=== PATIENT | male | born 1945 | race Caucasian/White ===

== ENCOUNTER 2018-06-02 12:16 | Emergency (ER) | payer MEDICARE, BC ==
--- OUTSIDE RECORDS SUMMARY | 2018-06-02 12:27 | XMS REPORT | Continuity of Care Document ---
:1945 External Reference #:[id number] Author Name Laurence Kumar Care Team Providers Name Role Phone Temi Blackburn MD Care Team Information Loss Prevention Analyst Unavailable Temi Blackburn MD Primary Care Physician Unavailable Payers Type Date Identification Numbers Payment Provider Subscriber Policy Number: [id number] Medicare Nic Angel PayID: [id number] [address] [place] [address] Policy Number: [id number] [facility] Nic Angel PayID: [id number] [address] [place] [address] Advance Directives Description No Information Available Problems Description No Information Family History Date Family Member(s) Problem(s) Comments Father Coronary Artery Disease (CAD) Father Prostate Cancer Mother Pancreatic Cancer Social History Type Date Description Comments Sex Unknown ETOH Use Rarely consumes alcohol Tobacco Use Start: Unknown End: Unknown Patient is a former smoker Smoking Status Reviewed: 05/14/17 Patient is a former smoker Allergies, Adverse Reactions, Alerts Description No Known Drug Allergies Medications Medication Date Status Form Strength Qnty SIG Indications Ordering Provider Flomax 05/26 Active Capsules 0.4mg 90cap 1 by mouth s every day MD Bere Zantac 75 05/13 Active Tablets 75mg tab 1 by mouth MD Bere twice a day Acidophilus Extra 06/11 Active Capsules 30cap 1 by mouth J15.7 Juan F. Strength s chavez Roman MD times a day Atorvastatin 05/14 Active Tablets 20mg 90tab 1 by mouth Temi Calcium s evening MD Bere Zinc 12/11 Active Tablets 50mg daily Temi MD Bere Tumeric 12/11 Active qd El MD Bere Vitamin D 11/27 Active Capsules [id number] 12cap by mouth Temi (Ergocalciferol) s every week MD Bere Lotrel 11/27 Active Capsules 5-40mg 90cap tab 1 by El s mouth MD Bere every day Metoprolol Active Tablets 50mg 1 by mouth Unknown Tartrate /0000 twice a day Eliquis 00 Active Tablets 5mg twice a Unknown /0000 day Medical Canabis Active twice Unknown Gels /0000 daily Medical Canabis 00 Active take at Unknown Liq /0000 bedtime Cefdinir Active Capsules 300mg 1 by mouth Unknown /0000 twice a day Shingrix 09/03 Hx Suspension 50mcg 2dose 1 dose Rec s intramuscu Bere, - lar then 05/13 repeat in 4 month Levofloxacin 06/11 Hx Tablets 500mg 7tabs 1 by mouth J15.7 Juan F. /2017 every day MD Jessie - 06/28 Zithromax Z-Brennen 05/14 Hx Tablets 250mg 1Pak 1 by mouth every day MD Bere - 06/28 Metamucil Fiber 05/14 Hx Packet 51.7% 90uni 1 packet ts every at MD Bere - bedtime in 05/13 8 oz water /2017 Zostavax 12/11 Hx Suspension 03327Sae/ 1unit one Rec 0.65ML s injection MD Bere - 09/03 Trazodone HCL 11/27 Hx Tablets 50mg 90tab 1 by mouth Cheo s every RingMD - night at 01/22 bedtime Omeprazole 11/[address] 20mg 90tab 1 by mouth Cheo s every day MD Bere - 01/22 Hydrochlorothiazi Hx Tablets 12.5mg tab 1 by Unknown de /0000 mouth - every in 05/13 morning as needed Zantac 150 00 Hx Tablets 150mg 1 by mouth Unknown Maximum Strength /0000 twice a - day 05/13 Tylenol 8 Hour 0000 Hx Tablets ER 650mg 1 by mouth Unknown Arthritis Pain /0000 bid as - directed 05/13 Prednisone 00/00 Hx Tablets 20mg 1 by mouth Unknown /0000 every day - 09/03 Immunizations CPT Code Status Date Vaccine Lot # [id number] Given 12/17/2016 Zostavax Vital Signs Date Vital Result Comment 05/26/2018 11:31am BP Systolic 138 mmHg BP Diastolic 84 mmHg Height 68 inches 5'8" Weight 249.00 lb BMI (Body Mass Index) 37.9 kg/m2 05/13/2018 1:50pm BP Systolic 120 mmHg BP Diastolic 82 mmHg Heart Rate 82 /min Height 68 inches 5'8" Weight 241.50 lb BMI (Body Mass Index) 36.7 kg/m2 O2 % BldC Oximetry 93 % 04/29/2018 10:52am BP Systolic 122 mmHg BP Diastolic 76 mmHg Heart Rate 72 /min Body Temperature 99.6 F Height 68 inches 5'8" Weight 243.00 lb BMI (Body Mass Index) 36.9 kg/m2 O2 % BldC Oximetry 92 % 01/20/2018 10:13am BP Systolic 138 mmHg BP Diastolic 80 mmHg Heart Rate 90 /min Height 68 inches 5'8" Weight 240.00 lb BMI (Body Mass Index) 36.5 kg/m2 O2 % BldC Oximetry 94 % 09/03/2017 11:16am BP Systolic 118 mmHg BP Diastolic 70 mmHg Height 68 inches 5'8" Weight 243.00 lb BMI (Body Mass Index) 36.9 kg/m2 06/28/2017 9:07am BP Systolic 124 mmHg BP Diastolic 76 mmHg Height 68 inches 5'8" Weight 235.00 lb BMI (Body Mass Index) 35.7 kg/m2 06/11/2017 3:21pm BP Systolic 118 mmHg BP Diastolic 66 mmHg Heart Rate 79 /min Body Temperature 97.7 F Respiratory Rate 22 /min Height 68 inches 5'8" 05/14/2017 2:19pm BP Systolic 128 mmHg BP Diastolic 76 mmHg Height 68 inches 5'8" Weight 218.00 lb BMI (Body Mass Index) 33.1 kg/m2 01/22/2017 1:30pm BP Systolic 114 mmHg BP Diastolic 60 mmHg Weight 231.00 lb 12/11/2016 9:13am BP Systolic 110 mmHg BP Diastolic 70 mmHg Height 69 inches 5'9" Weight 234.00 lb BMI (Body Mass Index) 34.6 kg/m2 Results Test Date Facility Test Result H/L Range Note Continuous Oximetry 05/22/2018 [facility] Oximetry 95 % N 93-[address] [place] [address] [phone] Fio2 21 N 21-100 Heart Rate 94 BPM Patient Status AMBULATING Continuous Oximetry 05/22/2018 [facility] Oximetry 95 % N 93-[address] [place] [address] [phone] Fio2 21 N 21-100 Heart Rate 87 BPM Patient Status RESTING Patient Position SITTING UP IN BE <SEE NOTE> 2 CBS W/Automated 05/22/2018 [facility] White Blood 9.2 K/uL N 3.4-10.[address] Count [place], [place] [id number] [phone] Red Blood Count 3.92 M/uL Low 4.20-5.80 Hemoglobin 12.1 gm/dL Low 12.8-17.0 Hematocrit 36.8 % Low 38.0-48.0 Mean Cell Volume 93.9 fl N 80.0-96.0 Mean Corpuscular HGB 30.9 pg N 27.0-33.0 Mean Corpuscular HGB Conc 32.9 g/dL N 31.7-36.0 Platelet Count 143 K/uL Low 155-360 Red Cell Distri Width SD 43.4 fl N 36-51 Red Cell Distri Width %CV 13.0 % N 11.6-15.8 Mean Platelet Volume 9.7 fL N 6.6-10.6 Neut% 82.1 % High 33.0-73.0 Lymph % 6.7 % Low 20.0-42.0 [place] % 8.5 % N 0.0-10.0 Eo% 2.5 % N 0.0-6.6 Bas% 0.2 % N 0.0-1.1 Neut# 7.55 K/uL High 1.8-7.0 Lymph # 0.62 K/uL Low 1.0-4.0 [place] # 0.78 K/uL N 0.0-0.8 Eos # 0.23 K/uL N 0.0-0.5 Baso # 0.02 K/uL N 0.0-0.1 Slide Review 05/22/2018 [facility] Slide Review DIFF ORDERED [address] [place] [address] [phone] Differential-WBC 05/22/2018 [facility] Total Cells 100 #CELLS Confirm [address] [place] [address] [phone] Band% 2 % N 0-8 Neutrophils% 89 % High 33-73 Lymph% 3 % Low 20-42 Monocyte% 4 % N 0-10 Eosinophil% 2 % N 0-5 Platelet Estimate NORMAL Toxic Granulation 0-1+ Comprehensive 05/22/2018 [facility] Glucose 124 mg/ dL High 74-106 Metabolic Panel [address] [place] [address] [phone] BUN 19 mg/dL High 7-18 Creatinine 1.0 mg/dL N 0.6-1.3 Glom Filtration Rate, Estimate >60 mL/min >60 If >60 mL/min >60 3 BUN/Creat 19.0 ratio Sodium 138 mmol/L N 136-145 Potassium 3.9 mmol/L N 3.5-5.1 Chloride 107 mmol/L N 98-107 Carbon Dioxide 24 mmol/L N 21-32 Anion Gap 7 mEq/L Low 8-16 Calcium 7.6 mg/dL Low 8.5-10.1 Total Protein 5.9 g/dL Low 6.4-8.2 Albumin 2.6 g/dL Low 3.4-5.0 Globulin 3.3 g/dL N 1.9-4.3 Alb/Glob 0.8 ratio Bilirubin,Total 1.0 mg/dL N 0.2-1.0 Sgot/Ast 19 U/L N 15-37 SGPT/Alt 34 U/L N 12-78 Alkaline Phosphatase 46 U/L N 45-117 Laboratory test 05/22/2018 [facility] Magnesium 2.0 mg/dL N 1.8-2.[address] [place] [address] [phone] C-Reactive Protein,Quant 143.0 mg/L High <3.0 Lactic Acid 05/21/2018 [facility] Lactic Acid 3.0 mmol/L High 0.4-1.[address] [place] [address] [phone] Lab Reflex >2.0 for Sepsis? N Laboratory test 05/21/2018 [facility] Troponin-I < 0.015 [address] ng/[place] [address] [phone] Laboratory test 05/21/2018 [facility] Magnesium 1.7 mg/dL Low 1.8-2.[address] [place] [address] [phone] Troponin-I < 0.015 ng/mL 6 C-Reactive Protein,Quant 56.0 mg/L High <3.0 Comprehensive 05/21/2018 [facility] Glucose 152 mg/ dL High 74-106 Metabolic Panel [address] [place] [address] [phone] BUN 15 mg/dL N 7-18 Creatinine 1.1 mg/dL N 0.6-1.3 Glom Filtration Rate, Estimate >60 mL/min >60 If >60 mL/min >60 7 BUN/Creat 13.6 ratio Sodium 136 mmol/L N 136-145 Potassium 4.3 mmol/L N 3.5-5.1 Chloride 104 mmol/L N 98-107 Carbon Dioxide 24 mmol/L N 21-32 Anion Gap 8 mEq/L N 8-16 Calcium 7.6 mg/dL Low 8.5-10.1 Total Protein 6.5 g/dL N 6.4-8.2 Albumin 3.2 g/dL Low 3.4-5.0 Globulin 3.3 g/dL N 1.9-4.3 Alb/Glob 1.0 ratio Bilirubin,Total 1.3 mg/dL High 0.2-1.0 Sgot/Ast 27 U/L N 15-37 SGPT/Alt 45 U/L N 12-78 Alkaline Phosphatase 54 U/L N 45-117 CBS W/Automated 05/21/2018 [facility] White Blood 14.2 K/uL High 3.4-10.[address] [place] [address] [phone] Red Blood Count 4.16 M/uL Low 4.20-5.80 Hemoglobin 12.9 gm/dL N 12.8-17.0 Hematocrit 38.6 % 38.0-48.0 Mean Cell Volume 92.8 fl N 80.0-96.0 Mean Corpuscular HGB 31.0 pg N 27.0-33.0 Mean Corpuscular HGB Conc 33.4 g/dL N 31.7-36.0 Platelet Count 159 K/uL N 155-360 Red Cell Distri Width SD 43.5 fl N 36-51 Red Cell Distri Width %CV 13.2 % N 11.6-15.8 Mean Platelet Volume 9.6 fL N 6.6-10.6 Neut% 89.0 % High 33.0-73.0 Lymph % 3.3 % Low 20.0-42.0 [place] % 7.6 % N 0.0-10.0 Eo% 0.0 % N 0.0-6.6 Bas% 0.1 % N 0.0-1.1 Neut# 12.68 K/uL High 1.8-7.0 Lymph # 0.47 K/uL Low 1.0-4.0 [place] # 1.08 K/uL High 0.0-0.8 Eos # 0.00 K/uL N 0.0-0.5 Baso # 0.01 K/uL N 0.0-0.1 Lactic Acid 05/21/2018 [facility] Lactic Acid 2.5 mmol/L High 0.4-1.[address] [place], [place] [address] [phone] Lab Reflex >2.0 for Sepsis? N Lactic Acid 05/21/2018 [facility] Lactic Acid 2.1 mmol/L High 0.4-1.[address] [place], [place] [id number] [phone] Lab Reflex >2.0 for Sepsis? N Lactic Acid 05/21/2018 [facility] Lactic Acid 1.7 mmol/L N 0.4-1.[address] [place] [address] [phone] Lab Reflex >2.0 for Sepsis? N [id number]-[id number] 05/20/2018 [facility] Nitrofurantoin [address] [place] [address] [phone] Trimethoprim/Sulfamethoxazole <=20 S Cefazolin <=4 R Ciprofloxacin <=0.25 S Piperacillin/Tazobactam <=4 S Ceftazidime <=1 S Ceftriaxone <=1 S Cefepime <=1 S Levofloxacin <=0.12 S Imipenem <=0.25 S Gentamicin <=1 S Tobramycin <=1 S Urine 05/20/2018 [facility] Urine ENTEROBACTER YAMILETH Abnormal [address] Culture <SEE NOTE> [place] [id number] [phone] Quantity > 100,000 CFU/mL 11 Urinalysis With 05/20/2018 [facility] Urine Color YELLOW Yellow [address] [place], [place] [address] [phone] Urine Clarity CLEAR Clear Urine Glucose - Dipstick NEGATIVE mg/dL Negative Urine Bilirubin - Dipstick NEGATIVE Negative Urine Ketone TRACE mg/dL High Negative Urine Specific [place] >=1.030 N 1.010-1.030 Urine Blood TRACE Negative Urine PH 6.0 Low 6.5-7.5 Urine Protein - Dipstick TRACE mg/dL Negative Urine Urobilinogen - Dipstick 0.2 E.U./dL N 0.2-1.0 Urine Nitrite - Dipstick NEGATIVE Negative Urine Leuk Esterase TRACE Abnormal Negative Urine RBC 2-5 rbc/hpf 0-2 Urine WBC 5-10 wbc/hpf 0-7 Urine Epithelial Cells FEW /lpf None Seen Urine Calcium Oxalate Crystals FEW None Seen Urine Bacteria FEW None Seen Source: URINE, CLEAN CAT <SEE NOTE> 13 Laboratory test 05/20/2018 [facility] D-Dimer, 0.34 ug/mL [address] Quantitative [place], [place] [id number] [phone] Lactic Acid 05/20/2018 [facility] Lactic Acid 2.7 mmol/L High 0.4-[address] [place], [place] [id number] [phone] Lab Reflex >2.0 for Sepsis? Y Blood Culture 05/20/2018 [facility] Blood Culture NO GROWTH: 15, [address] Aerobic FINAL <[place] [address] NOTE> [phone] Blood Culture Anaerobic NO GROWTH: FINAL <SEE NOTE> 17 Slide Review 05/20/2018 [facility] Slide Review (SEE NOTE) 18, [address] [place], [place] [id number] [phone] CBS 05/20/2018 [facility] White Blood 11.0 K/uL High 3.4-10 W/Automated [address] Count .5 [place] [address] [phone] Red Blood Count 4.73 M/uL N 4.20-5.80 Hemoglobin 14.4 gm/dL N 12.8-17.0 Hematocrit 43.4 % N 38.0-48.0 Mean Cell Volume 91.8 fl N 80.0-96.0 Mean Corpuscular HGB 30.4 pg N 27.0-33.0 Mean Corpuscular HGB Conc 33.2 g/dL N 31.7-36.0 Platelet Count 212 K/uL N 155-360 Red Cell Distri Width SD 43.2 fl N 36-51 Red Cell Distri Width %CV 13.2 % N 11.6-15.8 Mean Platelet Volume 9.7 fL N 6.6-10.6 Neut% 77.5 % High 33.0-73.0 Lymph % 11.0 % Low 20.0-42.0 [place] % 10.8 % High 0.0-10.0 Eo% 0.5 % N 0.0-6.6 Bas% 0.2 % N 0.0-1.1 Neut# 8.55 K/uL High 1.8-7.0 Lymph # 1.21 K/uL N 1.0-4.0 [place] # 1.19 K/uL High 0.0-0.8 Eos # 0.06 K/uL N 0.0-0.5 Baso # 0.02 K/uL N 0.0-0.1 Laboratory test 05/20/2018 [facility] Magnesium 1.7 mg/dL Low 1.8-2.[address] [place] [address] [phone] NT-proBNP 86.0 pg/mL <125 Troponin-I < 0.015 ng/mL 20 Comprehensive 05/20/2018 [facility] Glucose 113 mg/ dL High 74-106 Metabolic Panel [address] [place] [address] [phone] BUN 22 mg/dL High 7-18 Creatinine 1.1 mg/dL N 0.6-1.3 Glom Filtration Rate, Estimate >60 mL/min >60 If >60 mL/min >60 21 BUN/Creat 20.0 ratio Sodium 138 mmol/L N 136-145 Potassium 4.1 mmol/L N 3.5-5.1 Chloride 103 mmol/L N 98-107 Carbon Dioxide 23 mmol/L N 21-32 Anion Gap 12 mEq/L N 8-16 Calcium 8.8 mg/dL N 8.5-10.1 Total Protein 7.7 g/dL N 6.4-8.2 Albumin 3.9 g/dL N 3.4-5.0 Globulin 3.8 g/dL N 1.9-4.3 Alb/Glob 1.0 ratio Bilirubin,Total 0.9 mg/dL N 0.2-1.0 Sgot/Ast 36 U/L N 15-37 SGPT/Alt 64 U/L N 12-78 Alkaline Phosphatase 66 U/L N 45-117 Laboratory 05/20/2018 [facility] Occult NEGATIVE Negative 22 test finding [address] Blood,Stool [place], [place] [id number] [phone] Blood Culture 05/20/2018 [facility] Blood Culture NO GROWTH: 23, [address] Aerobic FINAL <SEE 24 [place] [address] NOTE> [phone] Blood Culture Anaerobic NO GROWTH: FINAL <SEE NOTE> 25 Aot Request 05/20/2018 [facility] Aot Request Test(s ) added 26, [address] [place] [address] [phone] Tests to be added: crp magnesium Aot Request 05/20/2018 [facility] Aot Request Test(s ) added [address] [place] [address] [phone] Tests to be added: bnp Laboratory test 05/20/2018 [facility] C-Reactive 7.2 mg/L High <3.[address] Protein,[place] [address] [phone] Laboratory test 05/20/2018 [facility] Lactic Acid 4.9 High 0.4-1.9 [address] mmol/[place] [address] [phone] Laboratory test 04/29/2018 [facility] TSH 2.35 0.40-4.[address] mIU/L 0 [place], [place] [address] [phone] T4,Free 1.0 ng/dL 0.8-1.8 PSA,Total 0.5 NG/ML < Or=4.0 31 Vitamin D,25-Hydroxy,Total,Immunoassay 36 NG/ML 30-100 32 CBS W/Automated Diff 04/29/2018 [facility] WBC 8.1 thous/L 3.8-10.[address] [place] [address] [phone] RBC 4.79 mill/L 4.20-5.80 Hemoglobin 14.8 g/dL 13.2-17.1 Hematocrit 45.3 % 38.5-50.0 MCV 94.7 FL 80.0-100.0 MCH 30.9 pg 27.0-33.0 MCHC 32.6 g/dL 32.0-36.0 RDW 13.1 % 11.0-15.0 Platelet Count 168 thous/L 140-400 MPV 8.2 FL 7.5-12.5 Neutrophils,Absolute 6010 cells/L [phone] Bands,Absolute PENDING Metamyelocytes,Absolute PENDING Myelocytes,Absolute PENDING Promyelocytes,Absolute PENDING Lymphocytes,Absolute 800 cells/L Low 850-3900 Monocytes,Absolute 1250 cells/L High 200-950 Eosinophils,Absolute 30 cells/L 15-500 Basophils,Absolute 30 cells/L 0-200 Blast Cells,Absolute PENDING Nucleated RBC,Absolute PENDING Total Neutrophils,% 74 % 40-75 Bands,% PENDING Metamyelocytes,% PENDING Myelocytes,% PENDING Promyelocytes,% PENDING Total Lymphocytes,% 10 % Low 12-47 Reactive Lymphocytes PENDING Monocytes,% 15 % High 4-12 Eosinophils,% 0 % 0-4 Basophils,% 0 % 0-1 33 Blasts,% PENDING Nucleated RBC PENDING Comment PENDING LDL Cholesterol Profile 04/29/2018 [facility] Cholesterol 124 mg/dL <[address] [place] [address] [phone] HDL Cholesterol 40 mg/dL Low >40 Cholesterol/HDL Ratio 3.1 CALC <5.0 LDL Chol,Calculated 67 mg/dL 0-100 34 Triglycerides 86 mg/dL <150 Non-HDL Cholesterol 84 mg/dL <130 35 Laboratory test 04/29/2018 [facility] Creatine 75 U/L 44-[address] Kinase,Total [place], [place] [address] [phone] Comp Metabolic 04/29/2018 [facility] Sodium 136 135-[address] mmol/L [place], [place] [address] [phone] Potassium 4.1 mmol/L 3.5-5.3 Chloride 102 mmol/L 98-110 Carbon Dioxide 23 mmol/L 20-32 36 Calcium 9.1 mg/dL 8.6-10.3 Alkaline Phosphatase 57 U/L 40-115 Ast 16 U/L 10-35 Alt 22 U/L 9-46 Bilirubin,Total 0.9 mg/dL 0.2-1.2 Glucose 140 mg/dL High 65-99 37 Urea Nitrogen (BUN) 18 mg/dL 7-25 Creatinine 0.97 mg/dL 0.70-1.18 38 BUN/Creatinine Ratio 18.8 6-22 Protein,Total 6.8 g/dL 6.1-8.1 Albumin 4.1 g/dL 3.6-5.1 Globulin,Calculated 2.7 g/dL 1.9-3.7 A/G Ratio 1.6 1.0-2.5 Egfr Non-Afr. Israeli 79 ML/MIN/1.73M2 > Or=60 Egfr 91 ML/MIN/1.73M2 > Or=60 CBC W/ Diff & 01/07/2018 [facility] White Blood 5.9 K /uL N 3.4-10.5 [address] [place] [address] [phone] Red Blood Count 4.71 M/uL N 4.20-5.80 Hemoglobin 14.7 gm/dL N 12.8-17.0 Hematocrit 44.1 % N 38.0-48.0 Mean Cell Volume 93.6 fl N 80.0-96.0 Mean Corpuscular HGB 31.2 pg N 27.0-33.0 Mean Corpuscular HGB Conc 33.3 g/dL N 31.7-36.0 Platelet Count 207 K/uL N 155-360 Red Cell Distri Width SD 43.2 fl N 36-51 Red Cell Distri Width %CV 12.9 % N 11.6-15.8 Mean Platelet Volume 9.6 fL N 6.6-10.6 Neut% 66.0 % N 33.0-73.0 Lymph % 15.2 % Low 20.0-42.0 [place] % 15.0 % High 0.0-10.0 Eo% 3.6 % N 0.0-6.6 Bas% 0.2 % N 0.0-1.1 Neut# 3.87 K/uL N 1.8-7.0 Lymph # 0.89 K/uL Low 1.0-4.0 [place] # 0.88 K/uL High 0.0-0.8 Eos # 0.21 K/uL N 0.0-0.5 Baso # 0.01 K/uL N 0.0-0.1 Comprehensive 01/07/2018 [facility] Glucose 117 mg/ dL High 74-106 Metabolic Panel [address] [place], [place] [address] [phone] BUN 21 mg/dL High 7-18 Creatinine 1.0 mg/dL N 0.6-1.3 Glom Filtration Rate, Estimate >60 mL/min >60 If >60 mL/min >60 40 BUN/Creat 21.0 ratio Sodium 142 mmol/L N 136-145 Potassium 4.1 mmol/L N 3.5-5.1 Chloride 106 mmol/L N 98-107 Carbon Dioxide 27 mmol/L N 21-32 Anion Gap 9 mEq/L N 8-16 Calcium 9.0 mg/dL N 8.5-10.1 Total Protein 7.6 g/dL N 6.4-8.2 Albumin 4.0 g/dL N 3.4-5.0 Globulin 3.6 g/dL N 1.9-4.3 Alb/Glob 1.1 ratio Bilirubin,Total 1.0 mg/dL N 0.2-1.0 Sgot/Ast 23 U/L N 15-37 SGPT/Alt 37 U/L N 12-78 Alkaline Phosphatase 59 U/L N 45-117 LDL Cholesterol 01/07/2018 [facility] Cholesterol 125 mg/dL <200 [address] [place] [address] [phone] Triglycerides 132 mg/dL <150 42 HDL Cholesterol 43 mg/dL >40 43 LDL-Cholesterol 56 mg/dL < 100 44 Laboratory test finding 01/07/2018 [facility] CK 159 U/L N 39-[address] [place] [address] [phone] Prostate Specific Antigen 3.78 ng/mL < 4.0 45 Thyroid Stim Hormone 1.60 uIU/mL N 0.30-4.20 Free T4 1.04 ng/dL N 0.76-1.46 Laboratory test 01/07/2018 [facility] Vitamin 47.8 30.0-100.0 [address] D,25-Hydroxy ng/[place] [address] [phone] CBC W/ Diff & 08/26/2017 [facility] WBC 6.2 3.8-10.8 [address] thous/[place] [address] [phone] RBC 4.84 mill/L 4.20-5.80 Hemoglobin 14.9 g/dL 13.2-17.1 Hematocrit 45.5 % 38.5-50.0 MCV 94.1 FL 80.0-100.0 MCH 30.7 pg 27.0-33.0 MCHC 32.6 g/dL 32.0-36.0 RDW 13.6 % 11.0-15.0 Platelet Count 204 thous/L 140-400 Platelet Sufficiency PENDING MPV 8.1 FL 7.5-12.5 Neutrophils,Absolute 3890 cells/L [phone] Bands,Absolute PENDING Metamyelocytes,Absolute PENDING Myelocytes,Absolute PENDING Promyelocytes,Absolute PENDING Lymphocytes,Absolute 1400 cells/L 850-3900 Monocytes,Absolute 700 cells/L 200-950 Eosinophils,Absolute 210 cells/L 15-500 Basophils,Absolute 50 cells/L 0-200 Blast Cells,Absolute PENDING Nucleated RBC,Absolute PENDING Total Neutrophils,% 62 % 40-75 Bands,% PENDING Metamyelocytes,% PENDING Myelocytes,% PENDING Promyelocytes,% PENDING Total Lymphocytes,% 22 % 12-47 Monocytes,% 11 % 4-12 Eosinophils,% 3 % 0-4 Basophils,% 1 % 0-1 48 Blasts,% PENDING Nucleated RBC PENDING RBC Morphology PENDING Anisocytosis PENDING Poikilocytosis PENDING Microcytosis PENDING Macrocytosis PENDING Polychromasia PENDING Hypochromasia PENDING Target Cells PENDING Basophilic Stippling PENDING Comment PENDING Comp Metabolic Panel 08/26/2017 [facility] Sodium 137 mmol/L 135-[address] [place] [address] [phone] Potassium 4.5 mmol/L 3.5-5.3 Chloride 104 mmol/L 98-110 Carbon Dioxide 23 mmol/L 20-31 Calcium 9.3 mg/dL 8.6-10.3 Alkaline Phosphatase 54 U/L 40-115 Ast 27 U/L 10-35 Alt 37 U/L 9-46 Bilirubin,Total 0.7 mg/dL 0.2-1.2 Glucose 119 mg/dL High 65-99 49 Urea Nitrogen (BUN) 22 mg/dL 7-25 Creatinine 1.13 mg/dL 0.70-1.18 50 BUN/Creatinine Ratio 19.4 6-22 Protein,Total 6.9 g/dL 6.1-8.1 Albumin 4.5 g/dL 3.6-5.1 Globulin,Calculated 2.4 g/dL 1.9-3.7 A/G Ratio 1.9 1.0-2.5 Egfr Non-Afr. Israeli 65 ML/MIN/1.73M2 > Or=60 Egfr 76 ML/MIN/1.73M2 > Or=60 Laboratory test 08/26/2017 [facility] Creatine 76 U/L 44-[address] Kinase,[place] [address] [phone] Hepatic Function 08/26/2017 [facility] Alkaline 54 U/L 40-[address] [place] [address] [phone] Ast 27 U/L 10-35 Alt 37 U/L 9-46 Bilirubin,Total 0.7 mg/dL 0.2-1.2 Bilirubin,Direct 0.2 mg/dL < Or=0.2 Protein,Total 6.9 g/dL 6.1-8.1 Albumin 4.5 g/dL 3.6-5.1 Globulin,Calculated 2.4 g/dL 1.9-3.7 A/G Ratio 1.9 1.0-2.5 Lipid Panel 08/26/2017 [facility] Cholesterol 127 mg/dL <[address] [place] [address] [phone] HDL Cholesterol 52 mg/dL >40 Cholesterol/HDL Ratio 2.4 CALC <5.0 LDL Chol,Calculated 61 mg/dL 0-100 51 Triglycerides 61 mg/dL <150 Non-HDL Cholesterol 75 mg/dL <130 52 Comp Metabolic Panel 04/29/2017 [facility] Sodium 139 mmol/L 135-[address] [place] [address] [phone] Potassium 4.7 mmol/L 3.5-5.3 Chloride 105 mmol/L 98-110 Carbon Dioxide 27 mmol/L 20-31 Calcium 9.7 mg/dL 8.6-10.3 Alkaline Phosphatase 56 U/L 40-115 Ast 16 U/L 10-35 Alt 20 U/L 9-46 Bilirubin,Total 0.7 mg/dL 0.2-1.2 Glucose 126 mg/dL High 65-99 53 Urea Nitrogen (BUN) 17 mg/dL 7-25 Creatinine 0.92 mg/dL 0.70-1.25 54 BUN/Creatinine Ratio 18.6 6-22 Protein,Total 6.6 g/dL 6.1-8.1 Albumin 4.4 g/dL 3.6-5.1 Globulin,Calculated 2.2 g/dL 1.9-3.7 A/G Ratio 2.1 1.0-2.5 55 Egfr Non-Afr. Israeli 85 ML/MIN/1.73M2 > Or=60 Egfr 98 ML/MIN/1.73M2 > Or=60 Hepatic Function 04/29/2017 [facility] Alkaline Phosphatase 56 U/L 40- [address] [place] [address] [phone] Ast 16 U/L 10-35 Alt 20 U/L 9-46 Bilirubin,Total 0.7 mg/dL 0.2-1.2 Bilirubin,Direct 0.2 mg/dL < Or=0.2 Protein,Total 6.6 g/dL 6.1-8.1 Albumin 4.4 g/dL 3.6-5.1 Globulin,Calculated 2.2 g/dL 1.9-3.7 A/G Ratio 2.1 1.0-2.5 56 Lipid Panel 04/29/2017 [facility] Cholesterol 132 mg/dL <[address] [place] [address] [phone] HDL Cholesterol 37 mg/dL Low >40 Cholesterol/HDL Ratio 3.6 CALC <5.0 LDL Chol,Calculated 76 mg/dL 0-100 57 Triglycerides 100 mg/dL <150 Non-HDL Cholesterol 95 mg/dL <130 58 Laboratory test finding 04/29/2017 [facility] TSH 1.20 mIU/L 0.40-4.50 6 [facility] [place] [address] [phone] T4,Free 1.1 ng/dL 0.8-1.8 PSA,Total 0.9 NG/ML < Or=4.0 59 Vitamin D,25-Hydroxy,Total,Immunoassay 47 NG/ML 30-100 60 CBC W/ Diff & PLT 04/29/2017 [facility] WBC 6.4 thous/L 3.8-10.8 6 [facility] [place] [address] [phone] RBC 4.83 mill/L 4.20-5.80 Hemoglobin 15.1 g/dL 13.2-17.1 Hematocrit 44.5 % 38.5-50.0 MCV 92.1 FL 80.0-100.0 MCH 31.2 pg 27.0-33.0 MCHC 33.9 g/dL 32.0-36.0 RDW 12.9 % 11.0-15.0 Platelet Count 207 thous/L 140-400 Platelet Sufficiency PENDING MPV 8.3 FL 7.5-12.5 Neutrophils,Absolute 4370 cells/L 7575-1944 Bands,Absolute PENDING Metamyelocytes,Absolute PENDING Myelocytes,Absolute PENDING Promyelocytes,Absolute PENDING Lymphocytes,Absolute 1150 cells/L [phone] Monocytes,Absolute 640 cells/L 200-950 Eosinophils,Absolute 190 cells/L 15-500 Basophils,Absolute 20 cells/L 0-200 Blast Cells,Absolute PENDING Nucleated RBC,Absolute PENDING Total Neutrophils,% 69 % 40-75 Bands,% PENDING Metamyelocytes,% PENDING Myelocytes,% PENDING Promyelocytes,% PENDING Total Lymphocytes,% 18 % 12-47 Monocytes,% 10 % 4-12 Eosinophils,% 3 % 0-4 Basophils,% 0 % 0-1 61 Blasts,% PENDING Nucleated RBC PENDING RBC Morphology PENDING Anisocytosis PENDING Poikilocytosis PENDING Microcytosis PENDING Macrocytosis PENDING Polychromasia PENDING Hypochromasia PENDING Target Cells PENDING Basophilic Stippling PENDING Comment PENDING General Health 01/09/2017 [facility] Thyroid Stim 0.94 uIU/mL N 0.30-4.20 [address] [place] [address] [phone] Free T4 0.87 ng/dL N 0.76-1.46 CMP W/O Egfr 01/09/2017 [facility] Glucose 107 mg/dL High 74-[address] [place] [address] [phone] BUN 25 mg/dL High 7-18 Creatinine 0.9 mg/dL N 0.6-1.3 Glom Filtration Rate, Estimate >60 mL/min >60 If >60 mL/min >60 63 BUN/Creat 27.7 ratio Sodium 139 mmol/L N 136-145 Potassium 4.2 mmol/L N 3.5-5.1 Chloride 108 mmol/L High 98-107 Carbon Dioxide 21 mmol/L N 21-32 Anion Gap 10 mEq/L N 8-16 Calcium 8.8 mg/dL N 8.5-10.1 Total Protein 7.4 g/dL N 6.4-8.2 Albumin 3.9 g/dL N 3.4-5.0 Globulin 3.5 g/dL N 1.9-4.3 Alb/Glob 1.1 ratio Bilirubin,Total 0.4 mg/dL N 0.2-1.0 Sgot/Ast 16 U/L N 15-37 SGPT/Alt 36 U/L N 12-78 Alkaline Phosphatase 64 U/L N 45-117 CBC W/ Diff & 01/09/2017 [facility] White Blood 8.4 K /uL N 3.4-10.[address] Count [place], [place] [id number] [phone] Red Blood Count 4.54 M/uL N 4.20-5.80 Hemoglobin 14.6 gm/dL N 12.8-17.0 Hematocrit 41.9 % N 38.0-48.0 Mean Cell Volume 92.3 fl N 80.0-96.0 Mean Corpuscular HGB 32.2 pg N 27.0-33.0 Mean Corpuscular HGB Conc 34.8 g/dL N 31.7-36.0 Platelet Count 197 K/uL N 150-400 Red Cell Distri Width SD 40.9 fl N 36-51 Red Cell Distri Width %CV 12.5 % N 11.6-15.8 Mean Platelet Volume 10.2 fL N 6.6-10.6 Neut% 73.1 % High 33.0-73.0 Lymph % 12.3 % Low 20.0-42.0 [place] % 11.2 % High 0.0-10.0 Eo% 3.2 % N 0.0-6.6 Bas% 0.2 % N 0.0-1.1 Neut# 6.11 K/uL N 1.8-7.0 Lymph # 1.03 K/uL N 1.0-4.0 [place] # 0.94 K/uL High 0.0-0.8 Eos # 0.27 K/uL N 0.0-0.5 Baso # 0.02 K/uL N 0.0-0.1 Lipid Panel 01/09/2017 [facility] Cholesterol 181 mg/ dL <[address] [place] [address] [phone] Triglycerides 159 mg/dL High <150 65 HDL Cholesterol 42 mg/dL >40 66 LDL-Cholesterol 107 mg/dL < 100 67 Laboratory test 01/09/2017 [facility] Prostate 1.56 ng/mL < 4.0 [address] [place] [address] Antigen [phone] Vitamin D,25-Hydroxy 45.7 ng/mL 30.0-100.0 69 Bilirubin,Direct 0.1 mg/dL N 0.0-0.2 1 SEPSIS, UTI 2 SITTING UP IN BED 3 Note: Persistent reduction for 3 months or more in an eGFR <60 mL/min/1.73 m2 defines CKD. Patients with eGFR values >/=60 mL/min/1.73 m2 may also have CKD if evidence of persistent proteinuria is present. The original MDRD equation for estimated GFR is not valid for patients less than 18 years of age. Additional information may be found at www.[email or web address]. 4 SEPSIS UTI 5 0.0 - 0.045 ng/mL: Normal 0.046 - 0.5 ng/mL: Suggestive 0.6 - 1.5 ng/mL: Consistent 6 0.0 - 0.045 ng/mL: Normal 0.046 - 0.5 ng/mL: Suggestive 0.6 - 1.5 ng/mL: Consistent 7 Note: Persistent reduction for 3 months or more in an eGFR <60 mL/min/1.73 m2 defines CKD. Patients with eGFR values >/=60 mL/min/1.73 m2 may also have CKD if evidence of persistent proteinuria is present. The original MDRD equation for estimated GFR is not valid for patients less than 18 years of age. Additional information may be found at www.[email or web address]. 8 SEPSIS, UTI 9 Specimen Hemolyzed, interpret with caution 10 ENTEROBACTER CLOACAE COMPLEX 11 > 100,000 CFU/mL 12 SOB, PAINFUL URINATION, URINARY INCONTINENCE 13 URINE, CLEAN CATCH 14 <=0.49 ug/mL - Low likelihood of DIC, DVT or Pulmonary Embolism >0.49 ug/mL - Additional testing should be done to rule out DIC, DVT, or Pulmonary embolism as clinically indicated. ([facility] has established a 97.89% negative predictive value for thrombotic disease when a cutoff value of 0.5 ug/mL is used.) 15 SEPSIS, UTI 16 NO GROWTH: FINAL REPORT 17 NO GROWTH: FINAL REPORT 18 SOB, PAINFUL URINATION, URINARY INCONTINENCE 19 Instrument flagged sample for slide review. Less than 10% Bands seen, no other immature WBC's seen. RBC morphology essentially normal. Platelet estimate=NORMAL 20 0.0 - 0.045 ng/mL: Normal 0.046 - 0.5 ng/mL: Suggestive 0.6 - 1.5 ng/mL: Consistent 21 Note: Persistent reduction for 3 months or more in an eGFR <60 mL/min/1.73 m2 defines CKD. Patients with eGFR values >/=60 mL/min/1.73 m2 may also have CKD if evidence of persistent proteinuria is present. The original MDRD equation for estimated GFR is not valid for patients less than 18 years of age. Additional information may be found at www.[email or web address]. 22 Method: Radha Peña Hemoccult Card 23 SEPSIS, UTI 24 NO GROWTH: FINAL REPORT 25 NO GROWTH: FINAL REPORT 26 SEPSIS UTI 27 Tests: crp magnesium Instructions: 28 Tests: bnp Instructions: 29 CALLED RICARDO [facility] AT [id number]/20/18 by LAB.[email or web address] 30 FASTING 31 The total PSA value from this assay system is standardized against the WHO standard. The test result will be approximately 20% lower when compared to the equimolar-standardized total PSA ([facility]ha [place]). Comparison of serial PSA results should be interpreted with this fact in mind. This test was performed using the Siemens chemiluminescent method. Values obtained from different assay methods be used interchangeably. PSA levels, regardless of value, should not be interpreted as absolute evidence of the presence or absence of disease. 32 Vitamin D Status 25-OH Vitamin D: Deficiency: <20 ng/mL Insufficiency: 20-29 ng/mL Optimal: > or=30 ng/mL For 25-OH Vitamin D testing on patients on D2-supplementation and patients for whom quantitation of D2 and D3 fractions is required, the QuestAssureD 25-OH Vit D, (D2,D3),LC/MS/MS is recommended: Order code 95305 (patients >2 yrs). 33 Relative blood cell counts (%) should be compared with absolute cell counts (cells/mcL). Relative counts may not be clinically meaningful if the absolute count of one or more cell type is decreased. Reference ranges for relative cell counts derived from: A Manual of Laboratory and Diagnostics Tests, 9th Ed, Zhen Vivek & Craig, 2015. Pediatric Reference Intervals, 7th Ed, [employer], 2011. 34 LDL-C is now calculated using the Zachary-Marci calculation, which is a validated novel method providing better accuracy than the Friedewald equation in the estimation of LDL-C. Zachary PATEL et al.JILL.2013;310(19):0260-0543 Desirable range <100 mg/dL for primary prevention; <70 mg/dL for patients with CHD or diabetic patients with >or=2 CHD risk factors. For additional information, please refer to http://education.SimilarWeb/faq/YMY235(This link is being provided for informational/educational purposes only.) 35 For patients with diabetes plus 1 major ASCVD risk factor, treating to a non-HDL-C goal of <100 mg/dL (LDL-C of <70 mg/ dL) is considered a therapeutic option. 36 Reference range for high altitude clients: 18-30 mmol/L 37 GLUCOSE REFERENCE RANGE BASED ON FASTING SPECIMEN. 38 The upper reference limit for Creatinine is approximately 13% higher for people identified as -Israeli. 39 I11.9,E55.9,E78.2 AIC IMPAIRED FASTING 40 Note: Persistent reduction for 3 months or more in an eGFR <60 mL/min/1.73 m2 defines CKD. Patients with eGFR values >/=60 mL/min/1.73 m2 may also have CKD if evidence of persistent proteinuria is present. The original MDRD equation for estimated GFR is not valid for patients less than 18 years of age. Additional information may be found at www.kdoqi.org. 41 Reference Guidelines*: Desirable: ........... < 200 mg/dL Borderline High: ..... 200-239 mg/dL High: ................ >=240 mg/dL * The National Cholesterol Education Program (NCEP) 42 Reference Guidelines*: Normal: ............. < 150 mg/dL Borderline High: .... 150-199 mg/dL High: ............... 200-499 mg/dL Very High: .......... > 500 mg/dL * Source: National Cholesterol Education Program (NCEP) 43 Reference Guidelines*: Low HDL: ..... < 40 mg/dL Normal: ..... 40-60 mg/dL Desirable: ... > 60 mg/dL *The National Cholesterol Education Program(NCEP) 44 Reference Guidelines*: Optimal:........... <100 mg/dL Near Optimal....... 100-129 mg/dL Borderline High.... 130-159 mg/dL High............... 160-189 mg/dL Very High.......... >=190 mg/dL * Source: National Cholesterol Education Program (NCEP) 45 THIS ASSAY IS NOT INTENDED A CANCER SCREENING TEST The concentration of PSA in a given specimen, determined with assays from different manufacturers, can vary due to differences in assay methods and reagent specificity. Values obtained from different assay methods cannot be used interchangeably. Method: Siemens [employer] [place] Chemiluminescent immunoassay. 46 Vitamin D deficiency has been defined by the [place] [employer] and an Endocrine Society practice guideline as a level of serum 25-OH vitamin D less than 20 ng/mL (1,2). The Endocrine Society went on to further define vitamin D insufficiency as a level between 21 and 29 ng/mL (2). 1. IOM ([place] of [employer]). 2010. Dietary reference intakes for calcium and D. [place]: The National Academies Press. 2. Shabbir MF, Opal LESLIE, Linus PYLE, et al. Evaluation, treatment, and prevention of vitamin D deficiency: an Endocrine Society clinical practice guideline. JCEM. 2010; 96(7):1911-30. Performed at: RN - [facility] [address] [id number] Software Project Lead: Taryn Sánchez MD, Phone: [phone] FASTING 48 Relative blood cell counts (%) should be compared with absolute cell counts (cells/mcL). Relative counts may not be clinically meaningful if the absolute count of one or more cell type is decreased. Reference ranges for relative cell counts derived from: A Manual of Laboratory and Diagnostics Tests, 9th Ed, Zhen Vivek & Craig, 2015. Pediatric Reference Intervals, 7th Ed, [employer], 2011. 49 GLUCOSE REFERENCE RANGE BASED ON FASTING SPECIMEN. 50 The upper reference limit for Creatinine is approximately 13% higher for people identified as -Israeli. 51 LDL-C is now calculated using the Zachary-Marci calculation, which is a validated novel method providing better accuracy than the Friedewald equation in the estimation of LDL-C. Zachary PATEL et al.JILL.2013;310(19):0928-6262 (http://education.SimilarWeb/faq/ILZ485) Desirable range <100 mg/dL for patients with CHD or Diabetes and <70 mg/dL for Diabetic patients with known heart disease 52 For patients with diabetes plus 1 major ASCVD risk factor, treating to a non-HDL-C goal of <100 mg/dL (LDL-C of <70 mg/ dL) is considered a therapeutic option. 53 GLUCOSE REFERENCE RANGE BASED ON FASTING SPECIMEN. 54 The upper reference limit for Creatinine is approximately 13% higher for people identified as -Israeli. 55 WE RECEIVED YOUR HANDWRITTEN TEST ORDER FOR A CHEMISTRY PANEL CONTAINING 14 OR MORE ANALYTES. WE PERFORMED THE AMA DEFINED COMPREHENSIVE METABOLIC PANEL. IF THIS IS NOT WHAT YOU INTENDED TO ORDER, PLEASE CONTACT YOUR LOCAL [employer] P[employer] IMMEDIATELY AT SO THAT WE CAN ADJUST OUR BILLING APPROPRIATELY. YOU MAY ALSO INQUIRE ABOUT ALTERNATIVE OR ADDITIONAL TESTING. 56 WE RECEIVED YOUR HANDWRITTEN TEST ORDER FOR A CHEMISTRY PANEL CONTAINING 14 OR MORE ANALYTES. WE PERFORMED THE AMA DEFINED COMPREHENSIVE METABOLIC PANEL. IF THIS IS NOT WHAT YOU INTENDED TO ORDER, PLEASE CONTACT YOUR LOCAL [employer] [facility] IMMEDIATELY AT SO THAT WE CAN ADJUST OUR BILLING APPROPRIATELY. YOU MAY ALSO INQUIRE ABOUT ALTERNATIVE OR ADDITIONAL TESTING. 57 LDL-C is now calculated using the Zachary-Covarrubias calculation, which is a validated novel method providing better accuracy than the Friedewald equation in the estimation of LDL-C. Zachary PATEL et al.JILL.2013;310(19):3981-7702 (http://education.[address]..Viewex/faq/SHE212) Desirable range <100 mg/dL for patients with CHD or Diabetes and <70 mg/dL for Diabetic patients with known heart disease 58 For patients with diabetes plus 1 major ASCVD risk factor, treating to a non-HDL-C goal of <100 mg/dL (LDL-C of <70 mg/ dL) is considered a therapeutic option. 59 The total PSA value from this assay system is standardized against the WHO standard. The test result will be approximately 20% lower when compared to the equimolar-standardized total PSA ([place]ha [place]). Comparison of serial PSA results should be interpreted with this fact in mind. This test was performed using the Siemens chemiluminescent method. Values obtained from different assay methods be used interchangeably. PSA levels, regardless of value, should not be interpreted as absolute evidence of the presence or absence of disease. 60 Vitamin D Status 25-OH Vitamin D: Deficiency: <20 ng/mL Insufficiency: 20-29 ng/mL Optimal: > or=30 ng/mL For 25-OH Vitamin D testing on patients on D2-supplementation and patients for whom quantitation of D2 and D3 fractions is required, the QuestAssureD 25-OH Vit D, (D2,D3),LC/MS/MS is recommended: Order code 57773 (patients >2 yrs). 61 Relative blood cell counts (%) should be compared with absolute cell counts (cells/mcL). Relative counts may not be clinically meaningful if the absolute count of one or more cell type is decreased. Reference ranges for relative cell counts derived from: A Manual of Laboratory and Diagnostics Tests, 9th Ed, Zhen Vivek & Craig, 2015. Pediatric Reference Intervals, 7th Ed, [facility], 2011. 62 I11.9 E78.2 N40.1 M81.8 I48.0 E03.9 63 Note: Persistent reduction for 3 months or more in an eGFR <60 mL/min/1.73 m2 defines CKD. Patients with eGFR values >/=60 mL/min/1.73 m2 may also have CKD if evidence of persistent proteinuria is present. The original MDRD equation for estimated GFR is not valid for patients less than 18 years of age. Additional information may be found at www.kdoqi.org. 64 Reference Guidelines*: Desirable: ........... < 200 mg/dL Borderline High: ..... 200-239 mg/dL High: ................ >=240 mg/dL * The National Cholesterol Education Program (NCEP) 65 Reference Guidelines*: Normal: ............. < 150 mg/dL Borderline High: .... 150-199 mg/dL High: ............... 200-499 mg/dL Very High: .......... > 500 mg/dL * Source: National Cholesterol Education Program (NCEP) 66 Reference Guidelines*: Low HDL: ..... < 40 mg/dL Normal: ..... 40-60 mg/dL Desirable: ... > 60 mg/dL *The National Cholesterol Education Program(NCEP) 67 Reference Guidelines*: Optimal:........... <100 mg/dL Near Optimal....... 100-129 mg/dL Borderline High.... 130-159 mg/dL High............... 160-189 mg/dL Very High.......... >=190 mg/dL * Source: National Cholesterol Education Program (NCEP) 68 THIS ASSAY IS NOT INTENDED A CANCER SCREENING TEST The concentration of PSA in a given specimen, determined with assays from different manufacturers, can vary due to differences in assay methods and reagent specificity. Values obtained from different assay methods cannot be used interchangeably. Method: [employer] Chemiluminescent immunoassay. 69 Vitamin D deficiency has been defined by the [place] [employer] and an Endocrine Society practice guideline as a level of serum 25-OH vitamin D less than 20 ng/mL (1,2). The Endocrine Society went on to further define vitamin D insufficiency as a level between 21 and 29 ng/mL (2). 1. IOM ([place] of [employer]). 2010. Dietary reference intakes for calcium and D. [place]: The National Academies Press. 2. Shabbir MF, Opal [place], Linus PYLE, et al. Evaluation, treatment, and prevention of vitamin D deficiency: an Endocrine Society clinical practice guideline. JCEM. 2010; 96(7):1911-30. Performed at: RN - [facility] [address] [id number] Software Project Lead: Taryn Sánchez MD, Phone: [phone] Procedures Date Code Description Status 01/13/2018 01382 Non-Invcorrotid/Comp /Bilat Study Completed 01/03/2017 42881 Dxa Bone Density [employer] Vertebral Fracture Completed Assessment 01/03/2017 [id number] Bone Mineral Density Test Completed 04/11/2010 [id number] Colonoscopy Completed Encounters Type Date Location Provider Dx Diagnosis Office Visit 05/13/2018 1:45p Main Office Temi Blackburn MD R06.00 Dyspnea, unspecified I48.0 Paroxysmal atrial fibrillation I11.9 Hypertensive heart disease without heart failure M54.5 Low back pain E66.9 Obesity, unspecified Office Visit 04/29/2018 10:45a Main Office Temi Blackburn MD R06.00 Dyspnea, unspecified I48.0 Paroxysmal atrial fibrillation I11.9 Hypertensive heart disease without heart failure Office Visit 01/20/2018 10:00a Main Office Temi Blackburn MD I48.0 Paroxysmal atrial fibrillation I11.9 Hypertensive heart disease without heart failure M54.5 Low back pain Z00.00 Encntr for general adult medical exam w/o abnormal findings E66.9 Obesity, unspecified Office Visit 09/03/2017 11:15a Main Office Temi Blackburn MD I48.0 Paroxysmal atrial fibrillation I11.9 Hypertensive heart disease without heart failure E55.9 Vitamin D deficiency, unspecified M54.5 Low back pain Office Visit 06/28/2017 8:45a Main Office Temi Blackburn MD J10.81 Influenza due to oth ident influenza virus w encephalopathy I11.9 Hypertensive heart disease without heart failure Office Visit 06/11/2017 2:50p Main Office Juan Roman J15.7 Pneumonia due to Mycoplasma pneumoniae Office Visit 05/14/2017 2:15p Main Office Temi Blackburn MD J01.90 Acute sinusitis, unspecified I11.9 Hypertensive heart disease without heart failure I48.0 Paroxysmal atrial fibrillation K21.9 Gastro-esophageal reflux disease without esophagitis E55.9 Vitamin D deficiency, unspecified R19.7 Diarrhea, unspecified Office Visit 01/22/2017 1:15p Main Office Temi Blackburn MD I11.9 Hypertensive heart disease without heart failure I48.0 Paroxysmal atrial fibrillation K21.9 Gastro-esophageal reflux disease without esophagitis M54.5 Low back pain E55.9 Vitamin D deficiency, unspecified Z00.00 Encntr for general adult medical exam w/o abnormal findings Office Visit 12/11/2016 8:45a Main Office Carol Martinez1.9 Gastro- esophageal reflux MD disease without esophagitis I11.9 Hypertensive heart disease without heart failure I48.0 Paroxysmal atrial fibrillation M54.5 Low back pain E55.9 Vitamin D deficiency, unspecified Plan of Treatment Future Appointment(s):06/26/2018 12:30 pm - Temi Blackburn MD at Main [id number] 8:30 am - Nurse at Main Frowjc2708/18/2018 3:30 pm - Temi Blackburn MD at Main Rwaxnn9205/26/2018 - Temi Blackburn MDN39.0 Urinary tract infection, site not specifiedReferral:Chase Nunez AllNew Medication:Flomax 0.4 mg - 1 by mouth every dayComments:UA DONE AND SENT FOR CULTUREREFER DR. NUNEZ, AMP UROLOGY, LIKELY NEED CYSTOSCOPY AND ELISEO BERMUDEZ
--- OUTSIDE RECORDS SUMMARY | 2018-06-02 12:28 | XMS REPORT | Continuity of Care Document ---
:1945 External Reference #:[id number] Author Name Robina Katz Care Team Providers Name Role Phone Temi Blackburn MD Primary Care Physician Unavailable Payers Type Date Identification Numbers Payment Provider Subscriber Policy Number: [id number] Medicare Nic Angel PayID: [id number] [address] [facility] [place] [address] Policy Number: [id number] [facility] Nic Angel PayID: [id number] [address] [address] [place] [address] Advance Directives Description No Information Available Problems [...] Form Strength Qnty SIG Indications Ordering Provider Zantac 75 05/13 Active Tablets 75mg tab 1 by mouth MD Bere twice a day Acidophilus Extra 06/11 Active Capsules 30cap 1 by mouth J15.7 Juan F. Strength s chavez Roman MD times a day Atorvastatin 05/14 Active Tablets 20mg 90tab 1 by mouth Temi Calcium s evening MD Bere Zinc 12/11 Active Tablets 50mg daily Temi MD Bere Tumeric 12/11 Active qd Cheo MD Bere Vitamin D 11/27 Active Capsules 57631Ojyr 12cap by mouth Temi (Ergocalciferol) s every week MD Bere Lotrel 11/27 Active Capsules 5-40mg 90cap tab 1 by Temi s mouth MD Bere every day Metoprolol 00 Active Tablets 50mg 1 by mouth Unknown Tartrate /0000 twice a day Eliquis 00 Active Tablets 5mg twice a Unknown /0000 day Medical Canabis 00 Active twice Unknown Gels /0000 daily Medical Canabis Active take at Unknown Liq /0000 bedtime Shingrix 09/03 Hx Suspension 50mcg 2dose 1 dose Rec s intramuscu Ring, - lar then 05/13 repeat in 4 month Levofloxacin 06/11 Hx Tablets 500mg 7tabs 1 by mouth J15.7 Juan F. /2017 every day MD Jessie - 06/28 Zithromax Z-Brennen 05/14 Hx Tablets 250mg 1Pak 1 by mouth every day Ring, - 06/28 Metamucil Fiber 05/14 Hx Packet 51.7% 90uni 1 packet ts every at Ring, - bedtime in 05/13 8 oz water Zostavax 12/11 Hx Suspension 92231Yfx/ 1unit one Rec 0.65ML s injection Ring, - 09/03 Trazodone HCL 11/27 Hx Tablets 50mg 90tab 1 by mouth s every RingMD - night at 01/22 bedtime Omeprazole 11/[address] 20mg 90tab 1 by mouth s every day MD Bere - 01/22 [...] /0000 bid as - directed 05/13 Prednisone 00 Hx Tablets 20mg 1 by mouth Unknown /0000 every day - 09/03 Immunizations CPT Code Status Date Vaccine Lot # [id number] Given 12/17/2016 Zostavax Vital Signs Date Vital Result Comment 05/13/2018 1:50pm BP Systolic 120 mmHg BP [...] Date Facility Test Result H/L Range Note Laboratory test 04/29/2018 [facility] TSH 2.35 mIU/L 0.40-4.50 [address] [place], [place] [id number] [phone] T4,Free 1.0 ng/dL 0.8-1.8 PSA,Total 0.5 NG/ML < Or=4.0 2 Vitamin D,25-Hydroxy,Total,Immunoassay 36 NG/ML 30-100 3 CBS W/Automated Diff 04/29/2018 [facility] WBC 8.1 thous/L 3.8-10.[address] [place] [address] [phone] RBC 4.79 mill/L 4.20-5.80 Hemoglobin 14.8 g/dL 13.2-17.1 Hematocrit 45.3 % 38.5-50.0 MCV 94.7 FL 80.0-100.0 MCH 30.9 pg 27.0-33.0 MCHC 32.6 g/dL 32.0-36.0 RDW 13.1 % 11.0-15.0 Platelet Count 168 thous/L 140-400 MPV 8.2 FL 7.5-12.5 Neutrophils,Absolute 6010 cells/L 7217-2409 Bands,Absolute PENDING Metamyelocytes,Absolute PENDING Myelocytes,Absolute PENDING Promyelocytes,Absolute [...] 0 % 0-4 Basophils,% 0 % 0-1 4 Blasts,% PENDING Nucleated RBC PENDING Comment PENDING LDL Cholesterol Profile 04/29/2018 [facility] Cholesterol 124 mg/dL <[address] [place] [address] [phone] HDL Cholesterol 40 mg/dL Low >40 Cholesterol/HDL Ratio 3.1 CALC <5.0 LDL Chol,Calculated 67 mg/dL 0-100 5 Triglycerides 86 mg/dL <150 Non-HDL Cholesterol 84 mg/dL <130 6 Laboratory test 04/29/2018 [facility] Creatine 75 U/L 44-[address] Kinase,[place] [address] [phone] Comp Metabolic 04/29/2018 [facility] Sodium 136 135-[address] mmol/[place] [address] [phone] Potassium 4.1 mmol/L 3.5-5.3 Chloride 102 mmol/L 98-110 Carbon Dioxide 23 mmol/L 20-32 7 Calcium 9.1 mg/dL 8.6-10.3 Alkaline Phosphatase 57 U/L 40-115 Ast 16 U/L 10-35 Alt 22 U/L 9-46 Bilirubin,Total 0.9 mg/dL 0.2-1.2 Glucose 140 mg/dL High 65-99 8 Urea Nitrogen (BUN) 18 mg/dL 7-25 Creatinine 0.97 mg/dL 0.70-1.18 9 BUN/Creatinine Ratio 18.8 6-22 Protein,Total 6.8 g/dL 6.1-8.1 Albumin 4.1 g/dL 3.6-5.1 Globulin,Calculated 2.7 g/dL 1.9-3.7 A/G Ratio 1.6 1.0-2.5 Egfr Non-Afr. Finnish 79 ML/MIN/1.73M2 > Or=60 Egfr 91 ML/MIN/1.73M2 > Or=60 CBC W/ Diff & 01/07/2018 [facility] White Blood 5.9 K /uL N 3.4-10.5 [address] Count [place], [place] [id number] [phone] Red Blood Count 4.71 M/uL N 4.20-5.80 [...] 33.0-73.0 Lymph % 15.2 % Low 20.0-42.0 [place] % 15.0 % High 0.0-10.0 Eo% 3.6 % N 0.0-6.6 Bas% 0.2 % N 0.0-1.1 Neut# 3.87 K/uL N 1.8-7.0 Lymph # 0.89 K/uL Low 1.0-4.0 [place] # 0.88 K/uL High 0.0-0.8 Eos # 0.21 K/uL N 0.0-0.5 Baso # 0.01 K/uL N 0.0-0.1 Comprehensive 01/07/2018 [facility] Glucose 117 mg/ dL High 74-106 Metabolic Panel [address] [place] [address] [phone] BUN 21 mg/dL High 7-18 Creatinine 1.0 mg/dL N 0.6-1.3 Glom Filtration Rate, Estimate >60 mL/min >60 If >60 mL/min >60 11 BUN/Creat 21.0 ratio Sodium 142 mmol/L N [...] 59 U/L N 45-117 LDL Cholesterol 01/07/2018 [facility] Cholesterol 125 mg/dL <200 [address] [place] [address] [phone] Triglycerides 132 mg/dL <150 13 HDL Cholesterol 43 mg/dL >40 14 LDL-Cholesterol 56 mg/dL < 100 15 Laboratory test finding 01/07/2018 [facility] CK 159 U/L N 39-[address] [place] [address] [phone] Prostate Specific Antigen 3.78 ng/mL < 4.0 16 Thyroid Stim Hormone 1.60 uIU/mL N 0.30-4.20 Free T4 1.04 ng/dL N 0.76-1.46 Laboratory test 01/07/2018 [facility] Vitamin 47.8 30.0-100.0 [address] D,25-Hydroxy ng/[place] [address] [phone] CBC W/ Diff & 08/26/2017 [facility] WBC 6.2 3.8-10.8 [address] thous/[place] [address] [phone] RBC 4.84 mill/L 4.20-5.80 Hemoglobin 14.9 g/dL 13.2-17.1 Hematocrit 45.5 % 38.5-50.0 MCV 94.1 FL 80.0-100.0 MCH 30.7 pg 27.0-33.0 MCHC 32.6 g/dL 32.0-36.0 RDW 13.6 % 11.0-15.0 Platelet Count 204 thous/L 140-400 Platelet Sufficiency PENDING MPV 8.1 FL 7.5-12.5 Neutrophils,Absolute 3890 cells/L [phone] Bands,Absolute PENDING Metamyelocytes,Absolute PENDING Myelocytes,Absolute PENDING Promyelocytes,Absolute PENDING Lymphocytes,Absolute 1400 cells/L [phone] Monocytes,Absolute 700 cells/L 200-950 Eosinophils,Absolute 210 cells/L 15-500 Basophils,Absolute 50 cells/L 0-200 Blast Cells,Absolute PENDING Nucleated RBC,Absolute PENDING Total Neutrophils,% 62 % 40-75 Bands,% PENDING Metamyelocytes,% PENDING Myelocytes,% PENDING Promyelocytes,% PENDING Total Lymphocytes,% 22 % 12-47 Monocytes,% 11 % 4-12 Eosinophils,% 3 % 0-4 Basophils,% 1 % 0-1 19 Blasts,% PENDING Nucleated RBC PENDING RBC Morphology PENDING Anisocytosis PENDING Poikilocytosis PENDING Microcytosis PENDING Macrocytosis PENDING Polychromasia PENDING Hypochromasia PENDING Target Cells PENDING Basophilic Stippling PENDING Comment PENDING Comp Metabolic Panel 08/26/2017 [facility] Sodium 137 mmol/L 135-[address] [place] [address] [phone] Potassium 4.5 mmol/L 3.5-5.3 Chloride 104 mmol/L 98-110 Carbon Dioxide 23 mmol/L 20-31 Calcium 9.3 mg/dL 8.6-10.3 Alkaline Phosphatase 54 U/L 40-115 Ast 27 U/L 10-35 Alt 37 U/L 9-46 Bilirubin,Total 0.7 mg/dL 0.2-1.2 Glucose 119 mg/dL High 65-99 20 Urea Nitrogen (BUN) 22 mg/dL 7-25 Creatinine 1.13 mg/dL 0.70-1.18 21 BUN/Creatinine Ratio 19.4 6-22 Protein,Total 6.9 g/dL 6.1-8.1 Albumin 4.5 g/dL 3.6-5.1 Globulin,Calculated 2.4 g/dL 1.9-3.7 A/G Ratio 1.9 1.0-2.5 Egfr Non-Afr. Finnish 65 ML/MIN/1.73M2 > Or=60 Egfr 76 ML/MIN/1.73M2 > Or=60 Laboratory test 08/26/2017 [facility] Creatine 76 U/L 44-[address] Kinase,[place] [address] [phone] Hepatic Function 08/26/2017 [facility] Alkaline 54 U/L 40-[address] [place] [address] [phone] Ast 27 U/L 10-35 Alt 37 U/L 9-46 Bilirubin,Total 0.7 mg/dL 0.2-1.2 Bilirubin,Direct 0.2 mg/dL < Or=0.2 Protein,Total 6.9 g/dL 6.1-8.1 Albumin 4.5 g/dL 3.6-5.1 Globulin,Calculated 2.4 g/dL 1.9-3.7 A/G Ratio 1.9 1.0-2.5 Lipid Panel 08/26/2017 [facility] Cholesterol 127 mg/dL <[address] [place] [address] [phone] HDL Cholesterol 52 mg/dL >40 Cholesterol/HDL Ratio 2.4 CALC <5.0 LDL Chol,Calculated 61 mg/dL 0-100 22 Triglycerides 61 mg/dL <150 Non-HDL Cholesterol 75 mg/dL <130 23 Comp Metabolic Panel 04/29/2017 [facility] Sodium 139 mmol/L 135-[address] [place] [address] [phone] Potassium 4.7 mmol/L 3.5-5.3 Chloride 105 mmol/L 98-110 Carbon Dioxide 27 mmol/L 20-31 Calcium 9.7 mg/dL 8.6-10.3 Alkaline Phosphatase 56 U/L 40-115 Ast 16 U/L 10-35 Alt 20 U/L 9-46 Bilirubin,Total 0.7 mg/dL 0.2-1.2 Glucose 126 mg/dL High 65-99 24 Urea Nitrogen (BUN) 17 mg/dL 7-25 Creatinine 0.92 mg/dL 0.70-1.25 25 BUN/Creatinine Ratio 18.6 6-22 Protein,Total 6.6 g/dL 6.1-8.1 Albumin 4.4 g/dL 3.6-5.1 Globulin,Calculated 2.2 g/dL 1.9-3.7 A/G Ratio 2.1 1.0-2.5 26 Egfr Non-Afr. Finnish 85 ML/MIN/1.73M2 > Or=60 Egfr 98 ML/MIN/1.73M2 > Or=60 Hepatic Function 04/29/2017 [facility] Alkaline Phosphatase 56 U/L 40- 115 Panel [address] [place] [address] [phone] Ast 16 U/L 10-35 Alt 20 U/L 9-46 Bilirubin,Total 0.7 mg/dL 0.2-1.2 Bilirubin,Direct 0.2 mg/dL < Or=0.2 Protein,Total 6.6 g/dL 6.1-8.1 Albumin 4.4 g/dL 3.6-5.1 Globulin,Calculated 2.2 g/dL 1.9-3.7 A/G Ratio 2.1 1.0-2.5 27 Lipid Panel 04/29/2017 [facility] Cholesterol 132 mg/dL <199 [address] [facility] [place] [address] [phone] HDL Cholesterol 37 mg/dL Low >40 Cholesterol/HDL Ratio 3.6 CALC <5.0 LDL Chol,Calculated 76 mg/dL 0-100 28 Triglycerides 100 mg/dL <150 Non-HDL Cholesterol 95 mg/dL <130 29 Laboratory test finding 04/29/2017 [facility] TSH 1.20 mIU/L 0.40-4.[address] [place], [place] [id number] [phone] T4,Free 1.1 ng/dL 0.8-1.8 PSA,Total 0.9 NG/ML < Or=4.0 30 Vitamin D,25-Hydroxy,Total,Immunoassay 47 NG/ML 30-100 31 CBC W/ Diff & PLT 04/29/2017 [facility] WBC 6.4 thous/L 3.8-10.[address] [place], [place] [id number] [phone] RBC 4.83 mill/L 4.20-5.80 Hemoglobin 15.1 g/dL 13.2-17.1 Hematocrit 44.5 % 38.5-50.0 MCV 92.1 FL 80.0-100.0 MCH 31.2 pg 27.0-33.0 MCHC 33.9 g/dL 32.0-36.0 RDW 12.9 % 11.0-15.0 Platelet Count 207 thous/L 140-400 Platelet Sufficiency PENDING MPV 8.3 FL 7.5-12.5 Neutrophils,Absolute 4370 cells/L [phone] Bands,Absolute PENDING Metamyelocytes,Absolute PENDING Myelocytes,Absolute PENDING Promyelocytes,Absolute PENDING Lymphocytes,Absolute 1150 cells/L [phone] Monocytes,Absolute 640 cells/L 200-950 Eosinophils,Absolute 190 cells/L 15-500 Basophils,Absolute 20 cells/L 0-200 Blast Cells,Absolute PENDING Nucleated RBC,Absolute PENDING Total Neutrophils,% 69 % 40-75 Bands,% PENDING Metamyelocytes,% PENDING Myelocytes,% PENDING Promyelocytes,% PENDING Total Lymphocytes,% 18 % 12-47 Monocytes,% 10 % 4-12 Eosinophils,% 3 % 0-4 Basophils,% 0 % 0-1 32 Blasts,% PENDING Nucleated RBC PENDING RBC Morphology PENDING Anisocytosis PENDING Poikilocytosis PENDING Microcytosis PENDING Macrocytosis PENDING Polychromasia PENDING Hypochromasia PENDING Target Cells PENDING Basophilic Stippling PENDING Comment PENDING General Health 01/09/2017 [facility] Thyroid Stim 0.94 uIU/mL N 0.30-4.[address] Hormone [place], [place] [address] [phone] Free T4 0.87 ng/dL N 0.76-1.46 CMP W/O Egfr 01/09/2017 [facility] Glucose 107 mg/dL High 74-[address] [place], [place] [address] [phone] BUN 25 mg/dL High 7-18 Creatinine 0.9 mg/dL N 0.6-1.3 Glom Filtration Rate, Estimate >60 mL/min >60 If >60 mL/min >60 34 BUN/Creat 27.7 ratio Sodium 139 mmol/L N [...] N 45-117 CBC W/ Diff & 01/09/2017 [facility] White Blood 8.4 K /uL N 3.4-10.[address] Count [place], [place] [id number] [phone] Red Blood Count 4.54 M/uL N 4.20-5.80 [...] 33.0-73.0 Lymph % 12.3 % Low 20.0-42.0 [place] % 11.2 % High 0.0-10.0 Eo% 3.2 % N 0.0-6.6 Bas% 0.2 % N 0.0-1.1 Neut# 6.11 K/uL N 1.8-7.0 Lymph # 1.03 K/uL N 1.0-4.0 [place] # 0.94 K/uL High 0.0-0.8 Eos # 0.27 K/uL N 0.0-0.5 Baso # 0.02 K/uL N 0.0-0.1 Lipid Panel 01/09/2017 [facility] Cholesterol 181 mg/ dL <[address] [place] [address] [phone] Triglycerides 159 mg/dL High <150 36 HDL Cholesterol 42 mg/dL >40 37 LDL-Cholesterol 107 mg/dL < 100 38 Laboratory test 01/09/2017 [facility] Prostate 1.56 ng/mL < 4.0 [address] [place] [address] Antigen [phone] Vitamin D,25-Hydroxy 45.7 ng/mL 30.0-100.0 40 Bilirubin,Direct 0.1 mg/dL N 0.0-0.2 1 FASTING 2 The total PSA value from this assay system is standardized against the WHO standard. The test result will be approximately 20% lower when compared to the equimolar-standardized total PSA (Radha Peña). Comparison of serial PSA results should be interpreted with this fact in mind. This test was performed using the Siemens chemiluminescent method. Values obtained from different assay methods be used interchangeably. PSA levels, regardless of value, should not be interpreted as absolute evidence of the presence or absence of disease. 3 Vitamin D Status 25-OH Vitamin D: Deficiency: <20 ng/mL Insufficiency: 20-29 ng/mL Optimal: > or=30 ng/mL For 25-OH Vitamin D testing on patients on D2-supplementation and patients for whom quantitation of D2 and D3 fractions is required, the [facility] 25-OH Vit D, (D2,D3),LC/MS/MS is recommended: Order code 40682 (patients >2 yrs). 4 Relative blood cell counts (%) should be compared with absolute cell counts (cells/mcL). Relative counts may not be clinically meaningful if the absolute count of one or more cell type is decreased. Reference ranges for relative cell counts derived from: A Manual of Laboratory and Diagnostics Tests, 9th Ed, Zhen Vivek & Craig, 2015. Pediatric Reference Intervals, 7th Ed, [facility], 2011. 5 LDL-C is now calculated using the Zachary-Marci calculation, which is a validated novel method providing better accuracy than the Friedewald equation in the estimation of LDL-C. Zachary SS et al.JILL.2013;310(19):6323-1465 Desirable range <100 mg/dL for primary prevention; <70 mg/dL for patients with CHD or diabetic patients with >or=2 CHD risk factors. For additional information, please refer to http://education.[employer]/faq/VSZ720(This link is being provided for informational/educational purposes only.) 6 For patients with diabetes plus 1 major ASCVD risk factor, treating to a non-HDL-C goal of <100 mg/dL (LDL-C of <70 mg/ dL) is considered a therapeutic option. 7 Reference range for high altitude clients: 18-30 mmol/L 8 GLUCOSE REFERENCE RANGE BASED ON FASTING SPECIMEN. 9 The upper reference limit for Creatinine is approximately 13% higher for people identified as -Finnish. 10 I11.9,E55.9,E78.2 AIC IMPAIRED FASTING 11 Note: Persistent reduction for 3 months or more in an eGFR <60 mL/min/1.73 m2 defines CKD. Patients with eGFR values >/=60 mL/min/1.73 m2 may also have CKD if evidence of persistent proteinuria is present. The original MDRD equation for estimated GFR is not valid for patients less than 18 years of age. Additional information may be found at www.kdoqi.org. 12 Reference Guidelines*: Desirable: ........... < 200 mg/dL Borderline High: ..... 200-239 mg/dL High: ................ >=240 mg/dL * The National Cholesterol Education Program (NCEP) 13 Reference Guidelines*: Normal: ............. < 150 mg/dL Borderline High: .... 150-199 mg/dL High: ............... 200-499 mg/dL Very High: .......... > 500 mg/dL * Source: National Cholesterol Education Program (NCEP) 14 Reference Guidelines*: Low HDL: ..... < 40 mg/dL Normal: ..... 40-60 mg/dL Desirable: ... > 60 mg/dL *The National Cholesterol Education Program(NCEP) 15 Reference Guidelines*: Optimal:........... <100 mg/dL Near Optimal....... 100-129 mg/dL Borderline High.... 130-159 mg/dL High............... 160-189 mg/dL Very High.......... >=190 mg/dL * Source: National Cholesterol Education Program (NCEP) 16 THIS ASSAY IS NOT INTENDED A CANCER SCREENING TEST The concentration of PSA in a given specimen, determined with assays from different manufacturers, can vary due to differences in assay methods and reagent specificity. Values obtained from different assay methods cannot be used interchangeably. Method: Siemens Dimension Harmony Chemiluminescent immunoassay. 17 Vitamin D deficiency has been defined by the [place] of [employer] and an Endocrine Society practice guideline as a level of serum 25-OH vitamin D less than 20 ng/mL (1,2). The Endocrine Society went on to further define vitamin D insufficiency as a level between 21 and 29 ng/mL (2). 1. IOM ([place] of Medicine). 2010. Dietary reference intakes for calcium and D. [place]: The National Academies Press. 2. Shabbir MF, Opal NC, Linus PYLE, et al. Evaluation, treatment, and prevention of vitamin D deficiency: an Endocrine Society clinical practice guideline. JCEM. 2010; 96(7):1911-30. Performed at: - [facility] [id number] Pump And Still Operator: Taryn Sánchez MD, Phone: [phone] 18 FASTING 19 Relative blood cell counts (%) should be compared with absolute cell counts (cells/mcL). Relative counts may not be clinically meaningful if the absolute count of one or more cell type is decreased. Reference ranges for relative cell counts derived from: A Manual of Laboratory and Diagnostics Tests, 9th Ed, Zhen Vivek & Craig, 2015. Pediatric Reference Intervals, 7th Ed, [facility], 2011. 20 GLUCOSE REFERENCE RANGE BASED ON FASTING SPECIMEN. 21 The upper reference limit for Creatinine is approximately 13% higher for people identified as -Finnish. 22 LDL-C is now calculated using the Zachary-Covarrubias calculation, which is a validated novel method providing better accuracy than the Friedewald equation in the estimation of LDL-C. Zachary PATEL et al.JILL.2013;310(96):2198-0766 (http://education.Game Insight/faq/EFN649) Desirable range <100 mg/dL for patients with CHD or Diabetes and <70 mg/dL for Diabetic patients with known heart disease 23 For patients with diabetes plus 1 major ASCVD risk factor, treating to a non-HDL-C goal of <100 mg/dL (LDL-C of <70 mg/ dL) is considered a therapeutic option. 24 GLUCOSE REFERENCE RANGE BASED ON FASTING SPECIMEN. 25 The upper reference limit for Creatinine is approximately 13% higher for people identified as -Finnish. 26 WE RECEIVED YOUR HANDWRITTEN TEST ORDER FOR A CHEMISTRY PANEL CONTAINING 14 OR MORE ANALYTES. WE PERFORMED THE AMA DEFINED COMPREHENSIVE METABOLIC PANEL. IF THIS IS NOT WHAT YOU INTENDED TO ORDER, PLEASE CONTACT YOUR LOCAL STEWARD/STEWARDESS TOURIST CLASS IMMEDIATELY AT SO THAT WE CAN ADJUST OUR BILLING APPROPRIATELY. YOU MAY ALSO INQUIRE ABOUT ALTERNATIVE OR ADDITIONAL TESTING. 27 WE RECEIVED YOUR HANDWRITTEN TEST ORDER FOR A CHEMISTRY PANEL CONTAINING 14 OR MORE ANALYTES. WE PERFORMED THE AMA DEFINED COMPREHENSIVE METABOLIC PANEL. IF THIS IS NOT WHAT YOU INTENDED TO ORDER, PLEASE CONTACT YOUR LOCAL STEWARD/STEWARDESS TOURIST CLASS IMMEDIATELY AT SO THAT WE CAN ADJUST OUR BILLING APPROPRIATELY. YOU MAY ALSO INQUIRE ABOUT ALTERNATIVE OR ADDITIONAL TESTING. 28 LDL-C is now calculated using the Zachary-Covarrubias calculation, which is a validated novel method providing better accuracy than the Friedewald equation in the estimation of LDL-C. Zachary PATEL et al.JILL.2013;310(19):7762-9444 (http://education.[employer]/faq/RMO204) Desirable range <100 mg/dL for patients with CHD or Diabetes and <70 mg/dL for Diabetic patients with known heart disease 29 For patients with diabetes plus 1 major ASCVD risk factor, treating to a non-HDL-C goal of <100 mg/dL (LDL-C of <70 mg/ dL) is considered a therapeutic option. 30 The total PSA value from this assay system is standardized against the WHO standard. The test result will be approximately 20% lower when compared to the equimolar-standardized total PSA (Radha Thomas). Comparison of serial PSA results should be interpreted with this fact in mind. This test was performed using the Siemens chemiluminescent method. Values obtained from different assay methods be used interchangeably. PSA levels, regardless of value, should not be interpreted as absolute evidence of the presence or absence of disease. 31 Vitamin D Status 25-OH Vitamin D: Deficiency: <20 ng/mL Insufficiency: 20-29 ng/mL Optimal: > or=30 ng/mL For 25-OH Vitamin D testing on patients on D2-supplementation and patients for whom quantitation of D2 and D3 fractions is required, the [facility] 25-OH Vit D, (D2,D3),LC/MS/MS is recommended: Order code 85594 (patients >2 yrs). 32 Relative blood cell counts (%) should be compared with absolute cell counts (cells/mcL). Relative counts may not be clinically meaningful if the absolute count of one or more cell type is decreased. Reference ranges for relative cell counts derived from: A Manual of Laboratory and Diagnostics Tests, 9th Ed, Zhen Vivek & Craig, 2015. Pediatric Reference Intervals, 7th Ed, [employer], 2011. 33 I11.9 E78.2 N40.1 M81.8 I48.0 E03.9 34 Note: Persistent reduction for 3 months or more in an eGFR <60 mL/min/1.73 m2 defines CKD. Patients with eGFR values >/=60 mL/min/1.73 m2 may also have CKD if evidence of persistent proteinuria is present. The original MDRD equation for estimated GFR is not valid for patients less than 18 years of age. Additional information may be found at www.kdoqi.org. 35 Reference Guidelines*: Desirable: ........... < 200 mg/dL Borderline High: ..... 200-239 mg/dL High: ................ >=240 mg/dL * The National Cholesterol Education Program (NCEP) 36 Reference Guidelines*: Normal: ............. < 150 mg/dL Borderline High: .... 150-199 mg/dL High: ............... 200-499 mg/dL Very High: .......... > 500 mg/dL * Source: National Cholesterol Education Program (NCEP) 37 Reference Guidelines*: Low HDL: ..... < 40 mg/dL Normal: ..... 40-60 mg/dL Desirable: ... > 60 mg/dL *The National Cholesterol Education Program(NCEP) 38 Reference Guidelines*: Optimal:........... <100 mg/dL Near Optimal....... 100-129 mg/dL Borderline High.... 130-159 mg/dL High............... 160-189 mg/dL Very High.......... >=190 mg/dL * Source: National Cholesterol Education Program (NCEP) 39 THIS ASSAY IS NOT INTENDED A CANCER SCREENING TEST The concentration of PSA in a given specimen, determined with assays from different manufacturers, can vary due to differences in assay methods and reagent specificity. Values obtained from different assay methods cannot be used interchangeably. Method: [employer] Harmony Chemiluminescent immunoassay. 40 Vitamin D deficiency has been defined by the [place] of [employer] and an Endocrine Society practice guideline as a level of serum 25-OH vitamin D less than 20 ng/mL (1,2). The Endocrine Society went on to further define vitamin D insufficiency as a level between 21 and 29 ng/mL (2). 1. IOM ([place] of [employer]). 2010. Dietary reference intakes for calcium and D. [place]: The National Academies Press. 2. Shabbir MF, Opal NC, Linus PYLE, et al. Evaluation, treatment, and prevention of vitamin D deficiency: an Endocrine Society clinical practice guideline. JCEM. 2010; 96(4):9380-30. 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
--- OUTSIDE RECORDS SUMMARY | 2018-06-02 12:28 | XMS REPORT | Continuity of Care Document ---
:1945 External Reference #:[id number] Author Name Maddie Salazar Care Team Providers Name Role Phone Temi Blackburn MD Primary Care Physician Unavailable Payers Type Date Identification Numbers Payment Provider Subscriber Policy Number: [id number] Medicare Nic Angel PayID: [id number] [address] [place] [address] Policy Number: [id number] [facility] Nic Angel PayID: [id number] [address] [address] MARIA C Darden [address] Advance Directives Description No Information Available Problems [...] 1 by mouth J15.7 Juan F. Strength /2017 s chavez Roman MD times a day Atorvastatin 05/14 Active Tablets 20mg 90tab 1 by mouth Temi Calcium s evening MD Bere Zinc 12/11 Active Tablets 50mg daily Temi MD Bere Tumeric 12/11 Active qd Temi MD Bere Vitamin D 11/27 Active Capsules [id number] 12cap by mouth Temi (Ergocalciferol) s every [...] 8 oz water Zostavax 12/11 Hx Suspension 50996Ofs/ 1unit one Rec 0.65ML s injection Ring, [...] /0000 bid as - directed 05/13 Prednisone 0000 Hx Tablets 20mg 1 by mouth Unknown /0000 every day - 09/03 Immunizations CPT Code Status Date Vaccine Lot # [id number] Given 12/17/2016 Zostavax Vital Signs Date Vital [...] TSH 2.35 mIU/L 0.40-4.50 [address] [place], [place] [id number] [phone] T4,Free 1.0 ng/dL 0.8-1.8 PSA,Total 0.5 NG/ML < Or=4.0 2 Vitamin D,25-Hydroxy,Total,Immunoassay 36 NG/ML 30-100 3 Comp Metabolic Panel 04/29/2018 [facility] Sodium 136 mmol/L 135-[address] [place], [place] [id number] [phone] Potassium 4.1 mmol/L 3.5-5.3 Chloride 102 mmol/L 98-110 Carbon Dioxide 23 mmol/L 20-32 4 Calcium 9.1 mg/dL 8.6-10.3 Alkaline Phosphatase 57 U/L 40-115 Ast 16 U/L 10-35 Alt 22 U/L 9-46 Bilirubin,Total 0.9 mg/dL 0.2-1.2 Glucose 140 mg/dL High 65-99 5 Urea Nitrogen (BUN) 18 mg/dL 7-25 Creatinine 0.97 mg/dL 0.70-1.18 6 BUN/Creatinine Ratio 18.8 6-22 Protein,Total 6.8 g/dL 6.1-8.1 Albumin 4.1 g/dL 3.6-5.1 Globulin,Calculated 2.7 g/dL 1.9-3.7 A/G Ratio 1.6 1.0-2.5 Egfr Non-Afr. Bruneian 79 ML/MIN/1.73M2 > Or=60 Egfr 91 ML/MIN/1.73M2 > Or=60 Laboratory test 04/29/2018 [facility] Creatine 75 U/L 44-[address] Kinase,[place] [address] [phone] CBS W/Automated 04/29/2018 [facility] WBC 8.1 3.8-10.[address] thous/ [place] [address] L [phone] RBC 4.79 mill/L 4.20-5.80 Hemoglobin 14.8 g/dL 13.2-17.1 Hematocrit 45.3 % 38.5-50.0 MCV 94.7 FL 80.0-100.0 MCH 30.9 pg 27.0-33.0 MCHC 32.6 g/dL 32.0-36.0 RDW 13.1 % 11.0-15.0 Platelet Count 168 thous/L 140-400 MPV 8.2 FL 7.5-12.5 Neutrophils,Absolute 6010 cells/L 4840-1327 Bands,Absolute PENDING Metamyelocytes,Absolute PENDING Myelocytes,Absolute PENDING Promyelocytes,Absolute [...] 0 % 0-4 Basophils,% 0 % 0-1 7 Blasts,% PENDING Nucleated RBC PENDING Comment PENDING LDL Cholesterol Profile 04/29/2018 [facility] Cholesterol 124 mg/dL <[address] [place] [address] [phone] HDL Cholesterol 40 mg/dL Low >40 Cholesterol/HDL Ratio 3.1 CALC <5.0 LDL Chol,Calculated 67 mg/dL 0-100 8 Triglycerides 86 mg/dL <150 Non-HDL Cholesterol 84 mg/dL <130 9 Laboratory 01/07/2018 [facility] Vitamin 47.8 30.0 -100.0 10, 11 test finding [address] D,25-Hydroxy ng/[place] [address] [phone] Laboratory 01/07/2018 [facility] CK 159 U/L N 39- 308 test finding [address] [place] [address] [phone] Prostate Specific Antigen 3.78 ng/mL < 4.0 12 Thyroid Stim Hormone 1.60 uIU/mL N 0.30-4.20 Free T4 1.04 ng/dL N 0.76-1.46 LDL Cholesterol 01/07/2018 [facility] Cholesterol 125 mg/dL <200 [address] [place] [address] [phone] Triglycerides 132 mg/dL <150 14 HDL Cholesterol 43 mg/dL >40 15 LDL-Cholesterol 56 mg/dL < 100 16 CBC W/ Diff & 01/07/2018 [facility] White Blood 5.9 K /uL N 3.4-10.[address] [place] [address] [phone] Red Blood Count 4.71 M/uL N 4.20-5.80 [...] 33.0-73.0 Lymph % 15.2 % Low 20.0-42.0 [place] % 15.0 % High 0.0-10.0 Eo% 3.6 % N 0.0-6.6 Bas% 0.2 % N 0.0-1.1 Neut# 3.87 K/uL N 1.8-7.0 Lymph # 0.89 K/uL Low 1.0-4.0 [place] # 0.88 K/uL High 0.0-0.8 Eos # 0.21 K/uL N 0.0-0.5 Baso # 0.01 K/uL N 0.0-0.1 Comprehensive 01/07/2018 [facility] Glucose 117 mg/ dL High 74-106 Metabolic Panel [address] [place], [place] [id number] [phone] BUN 21 mg/dL High 7-18 Creatinine 1.0 mg/dL N 0.6-1.3 Glom Filtration Rate, Estimate >60 mL/min >60 If >60 mL/min >60 17 BUN/Creat 21.0 ratio Sodium 142 mmol/L N [...] 12-78 Alkaline Phosphatase 59 U/L N 45-117 Comp Metabolic Panel 08/26/2017 [facility] Sodium 137 mmol/L 135-[address] [place] [address] [phone] Potassium 4.5 mmol/L 3.5-5.3 Chloride 104 mmol/L 98-110 Carbon Dioxide 23 mmol/L 20-31 Calcium 9.3 mg/dL 8.6-10.3 Alkaline Phosphatase 54 U/L 40-115 Ast 27 U/L 10-35 Alt 37 U/L 9-46 Bilirubin,Total 0.7 mg/dL 0.2-1.2 Glucose 119 mg/dL High 65-99 19 Urea Nitrogen (BUN) 22 mg/dL 7-25 Creatinine 1.13 mg/dL 0.70-1.18 20 BUN/Creatinine Ratio 19.4 6-22 Protein,Total 6.9 g/dL 6.1-8.1 Albumin 4.5 g/dL 3.6-5.1 Globulin,Calculated 2.4 g/dL 1.9-3.7 A/G Ratio 1.9 1.0-2.5 Egfr Non-Afr. Bruneian 65 ML/MIN/1.73M2 > Or=60 Egfr 76 ML/MIN/1.73M2 > Or=60 Laboratory test 08/26/2017 [facility] Creatine 76 U/L 44-[address] Kinase,[place] [address] [phone] Hepatic Function 08/26/2017 [facility] Alkaline 54 U/L 40-[address] [place] [address] [phone] Ast 27 U/L 10-35 Alt 37 U/L 9-46 Bilirubin,Total 0.7 mg/dL 0.2-1.2 Bilirubin,Direct 0.2 mg/dL < Or=0.2 Protein,Total 6.9 g/dL 6.1-8.1 Albumin 4.5 g/dL 3.6-5.1 Globulin,Calculated 2.4 g/dL 1.9-3.7 A/G Ratio 1.9 1.0-2.5 Lipid Panel 08/26/2017 [facility] Cholesterol 127 mg/dL <199 [address] [place] [address] [phone] HDL Cholesterol 52 mg/dL >40 Cholesterol/HDL Ratio 2.4 CALC <5.0 LDL Chol,Calculated 61 mg/dL 0-100 21 Triglycerides 61 mg/dL <150 Non-HDL Cholesterol 75 mg/dL <130 22 CBC W/ Diff & PLT 08/26/2017 [facility] WBC 6.2 thous/L 3.8-10.[address] [place] [address] [phone] RBC 4.84 mill/L 4.20-5.80 Hemoglobin 14.9 g/dL 13.2-17.1 Hematocrit 45.5 % 38.5-50.0 MCV 94.1 FL 80.0-100.0 MCH 30.7 pg 27.0-33.0 MCHC 32.6 g/dL 32.0-36.0 RDW 13.6 % 11.0-15.0 Platelet Count 204 thous/L 140-400 Platelet Sufficiency PENDING MPV 8.1 FL 7.5-12.5 Neutrophils,Absolute 3890 cells/L 1844-5616 Bands,Absolute PENDING Metamyelocytes,Absolute PENDING Myelocytes,Absolute PENDING Promyelocytes,Absolute PENDING Lymphocytes,Absolute 1400 cells/L 850-3900 Monocytes,Absolute 700 cells/L 200-950 Eosinophils,Absolute 210 cells/L 15-500 Basophils,Absolute 50 cells/L 0-200 Blast Cells,Absolute PENDING Nucleated RBC,Absolute PENDING Total Neutrophils,% 62 % 40-75 Bands,% PENDING Metamyelocytes,% PENDING Myelocytes,% PENDING Promyelocytes,% PENDING Total Lymphocytes,% 22 % 12-47 Monocytes,% 11 % 4-12 Eosinophils,% 3 % 0-4 Basophils,% 1 % 0-1 23 Blasts,% PENDING Nucleated RBC PENDING RBC Morphology PENDING Anisocytosis PENDING Poikilocytosis PENDING Microcytosis PENDING Macrocytosis PENDING Polychromasia PENDING Hypochromasia PENDING Target Cells PENDING Basophilic Stippling PENDING Comment PENDING CBC W/ Diff & PLT 04/29/2017 [facility] WBC 6.4 thous/L 3.8-10.8 [address] [place] [address] [phone] RBC 4.83 mill/L 4.20-5.80 Hemoglobin 15.1 g/dL 13.2-17.1 Hematocrit 44.5 % 38.5-50.0 MCV 92.1 FL 80.0-100.0 MCH 31.2 pg 27.0-33.0 MCHC 33.9 g/dL 32.0-36.0 RDW 12.9 % 11.0-15.0 Platelet Count 207 thous/L 140-400 Platelet Sufficiency PENDING MPV 8.3 FL 7.5-12.5 Neutrophils,Absolute 4370 cells/L 5078-5309 Bands,Absolute PENDING Metamyelocytes,Absolute PENDING Myelocytes,Absolute PENDING Promyelocytes,Absolute PENDING Lymphocytes,Absolute 1150 cells/L 850-3900 Monocytes,Absolute 640 cells/L 200-950 Eosinophils,Absolute 190 cells/L 15-500 Basophils,Absolute 20 cells/L 0-200 Blast Cells,Absolute PENDING Nucleated RBC,Absolute PENDING Total Neutrophils,% 69 % 40-75 Bands,% PENDING Metamyelocytes,% PENDING Myelocytes,% PENDING Promyelocytes,% PENDING Total Lymphocytes,% 18 % 12-47 Monocytes,% 10 % 4-12 Eosinophils,% 3 % 0-4 Basophils,% 0 % 0-1 24 Blasts,% PENDING Nucleated RBC PENDING RBC Morphology PENDING Anisocytosis PENDING Poikilocytosis PENDING Microcytosis PENDING Macrocytosis PENDING Polychromasia PENDING Hypochromasia PENDING Target Cells PENDING Basophilic Stippling PENDING Comment PENDING Comp Metabolic Panel 04/29/2017 [facility] Sodium 139 mmol/L 135-146 [address] [place] [address] [phone] Potassium 4.7 mmol/L 3.5-5.3 Chloride 105 mmol/L 98-110 Carbon Dioxide 27 mmol/L 20-31 Calcium 9.7 mg/dL 8.6-10.3 Alkaline Phosphatase 56 U/L 40-115 Ast 16 U/L 10-35 Alt 20 U/L 9-46 Bilirubin,Total 0.7 mg/dL 0.2-1.2 Glucose 126 mg/dL High 65-99 25 Urea Nitrogen (BUN) 17 mg/dL 7-25 Creatinine 0.92 mg/dL 0.70-1.25 26 BUN/Creatinine Ratio 18.6 6-22 Protein,Total 6.6 g/dL 6.1-8.1 Albumin 4.4 g/dL 3.6-5.1 Globulin,Calculated 2.2 g/dL 1.9-3.7 A/G Ratio 2.1 1.0-2.5 27 Egfr Non-Afr. Bruneian 85 ML/MIN/1.73M2 > Or=60 Egfr 98 ML/MIN/1.73M2 > Or=60 Hepatic Function 04/29/2017 [facility] Alkaline Phosphatase 56 U/L 40- [address] [place] [address] [phone] Ast 16 U/L 10-35 Alt 20 U/L 9-46 Bilirubin,Total 0.7 mg/dL 0.2-1.2 Bilirubin,Direct 0.2 mg/dL < Or=0.2 Protein,Total 6.6 g/dL 6.1-8.1 Albumin 4.4 g/dL 3.6-5.1 Globulin,Calculated 2.2 g/dL 1.9-3.7 A/G Ratio 2.1 1.0-2.5 28 Lipid Panel 04/29/2017 [facility] Cholesterol 132 mg/dL <[address] [place] [address] [phone] HDL Cholesterol 37 mg/dL Low >40 Cholesterol/HDL Ratio 3.6 CALC <5.0 LDL Chol,Calculated 76 mg/dL 0-100 29 Triglycerides 100 mg/dL <150 Non-HDL Cholesterol 95 mg/dL <130 30 Laboratory test finding 04/29/2017 [facility] TSH 1.20 mIU/L 0.40-4.[address] [place] [address] [phone] T4,Free 1.1 ng/dL 0.8-1.8 PSA,Total 0.9 NG/ML < Or=4.0 31 Vitamin D,25-Hydroxy,Total,Immunoassay 47 NG/ML 30-100 32 General Health 01/09/2017 [facility] Thyroid Stim 0.94 uIU/mL N 0.30-4.20 [address] Hormone [place], [place] [id number] [phone] Free T4 0.87 ng/dL N 0.76-1.46 CMP W/O Egfr 01/09/2017 [facility] Glucose 107 mg/dL High 74-[address] [place], [place] [address] [phone] BUN 25 mg/dL High 7-18 Creatinine 0.9 [...] N 45-117 CBC W/ Diff & 01/09/2017 [facility] White Blood 8.4 K /uL N 3.4-10.[address] Count [place], [place] [address] [phone] Red Blood Count 4.54 M/uL N 4.20-5.80 [...] 33.0-73.0 Lymph % 12.3 % Low 20.0-42.0 [place] % 11.2 % High 0.0-10.0 Eo% 3.2 % N 0.0-6.6 Bas% 0.2 % N 0.0-1.1 Neut# 6.11 K/uL N 1.8-7.0 Lymph # 1.03 K/uL N 1.0-4.0 [place] # 0.94 K/uL High 0.0-0.8 Eos # 0.27 K/uL N 0.0-0.5 Baso # 0.02 K/uL N 0.0-0.1 Lipid Panel 01/09/2017 [facility] Cholesterol 181 mg/ dL <[address] [place] [address] [phone] Triglycerides 159 mg/dL High <150 36 HDL Cholesterol 42 mg/dL >40 37 LDL-Cholesterol 107 mg/dL < 100 38 Laboratory test 01/09/2017 [facility] Prostate 1.56 ng/mL < 4.0 [address] [place] [place] [address] Antigen [phone] Vitamin D,25-Hydroxy 45.7 ng/mL 30.0-100.0 40 Bilirubin,Direct 0.1 mg/dL N 0.0-0.2 1 FASTING 2 The total PSA value from this assay system is standardized against the WHO standard. The test result will be approximately 20% lower when compared to the equimolar-standardized total PSA ([facility]). Comparison of serial PSA results should be [...] Vit D, (D2,D3),LC/MS/MS is recommended: Order code 57823 (patients >2 yrs). 4 Reference range for high altitude clients: 18-30 mmol/L 5 GLUCOSE REFERENCE RANGE BASED ON FASTING SPECIMEN. 6 The upper reference limit for Creatinine is approximately 13% higher for people identified as -Bruneian. 7 Relative blood cell counts (%) should be compared with absolute cell counts (cells/mcL). Relative counts may not be clinically meaningful if the absolute count of one or more cell type is decreased. Reference ranges for relative cell counts derived from: A Manual of Laboratory and Diagnostics Tests, 9th Ed, Zhen Vivek & Craig, 2015. Pediatric Reference Intervals, 7th Ed, [facility], 2011. 8 LDL-C is now calculated using the Zachary-Marci calculation, which is a validated novel method providing better accuracy than the Friedewald equation in the estimation of LDL-C. Zachary PATEL et al.JILL.2013;310(19):0642-1095 Desirable range <100 mg/dL for primary prevention; <70 mg/dL for patients with CHD or diabetic patients with >or=2 CHD risk factors. For additional information, please refer to http://education.Eqiancheng.com.AchieveMint/faq/QHI668(This link is being provided for informational/educational purposes only.) 9 For patients with diabetes plus 1 major ASCVD risk factor, treating to a non-HDL-C goal of <100 mg/dL (LDL-C of <70 mg/ dL) is considered a therapeutic option. 10 I11.9,E55.9,E78.2 AIC IMPAIRED FASTING 11 Vitamin D deficiency has been defined by the [place] of [employer] and an Endocrine Society practice guideline as a level of serum 25-OH vitamin D less than 20 ng/mL (1,2). The Endocrine Society went on to further define vitamin D insufficiency as a level between 21 and 29 ng/mL (2). 1. IOM ([place] of [employer]). 2010. Dietary reference intakes for calcium and D. [place]: The National Academies Press. 2. Shabbir MF, Opal NC, Linus PYLE, et al. Evaluation, treatment, and prevention of vitamin D deficiency: an Endocrine Society clinical practice guideline. JCEM. 2011 Dec; 96(7):1911-30. Performed at: RN - [facility] [address] [id number] Linux Kernel Developer: Taryn Sánchez MD, Phone: [phone] 12 THIS ASSAY IS NOT INTENDED A CANCER SCREENING TEST The concentration of PSA in a given specimen, determined with assays from different manufacturers, can vary due to differences in assay methods and reagent specificity. Values obtained from different assay methods cannot be used interchangeably. Method: Scour Prevention [place] Chemiluminescent immunoassay. 13 Reference Guidelines*: Desirable: ........... < 200 mg/dL Borderline High: ..... 200-239 mg/dL High: ................ >=240 mg/dL * The National Cholesterol Education Program (NCEP) 14 Reference Guidelines*: Normal: ............. < 150 mg/dL Borderline High: .... 150-199 mg/dL High: ............... 200-499 mg/dL Very High: .......... > 500 mg/dL * Source: National Cholesterol Education Program (NCEP) 15 Reference Guidelines*: Low HDL: ..... < 40 mg/dL Normal: ..... 40-60 mg/dL Desirable: ... > 60 mg/dL *The National Cholesterol Education Program(NCEP) 16 Reference Guidelines*: Optimal:........... <100 mg/dL Near Optimal....... 100-129 mg/dL Borderline High.... 130-159 mg/dL High............... 160-189 mg/dL Very High.......... >=190 mg/dL * Source: National Cholesterol Education Program (NCEP) 17 Note: Persistent reduction for 3 months or more in an eGFR <60 mL/min/1.73 m2 defines CKD. Patients with eGFR values >/=60 mL/min/1.73 m2 may also have CKD if evidence of persistent proteinuria is present. The original MDRD equation for estimated GFR is not valid for patients less than 18 years of age. Additional information may be found at www.kdoqi.org. 18 FASTING 19 GLUCOSE REFERENCE RANGE BASED ON FASTING SPECIMEN. 20 The upper reference limit for Creatinine is approximately 13% higher for people identified as -Bruneian. 21 LDL-C is now calculated using the Zachary-Covarrubias calculation, which is a validated novel method providing better accuracy than the Friedewald equation in the estimation of LDL-C. Zachary SS et al.JILL.2013;310(85):6960-8401 (http://Scheduling Employee Scheduling Software.Drillinginfo/faq/TGU656) Desirable range <100 mg/dL for patients with CHD or Diabetes and <70 mg/dL for Diabetic patients with known heart disease 22 For patients with diabetes plus 1 major ASCVD risk factor, treating to a non-HDL-C goal of <100 mg/dL (LDL-C of <70 mg/ dL) is considered a therapeutic option. 23 Relative blood cell counts (%) should be compared with absolute cell counts (cells/mcL). Relative counts may not be clinically meaningful if the absolute count of one or more cell type is decreased. Reference ranges for relative cell counts derived from: A Manual of Laboratory and Diagnostics Tests, 9th Ed, Zhen Vivek & Craig, 2015. Pediatric Reference Intervals, 7th Ed, [employer] Press, 2011. 24 Relative blood cell counts (%) should be compared with absolute cell counts (cells/mcL). Relative counts may not be clinically meaningful if the absolute count of one or more cell type is decreased. Reference ranges for relative cell counts derived from: A Manual of Laboratory and Diagnostics Tests, 9th Ed, Zhen Vivek & Craig, 2015. Pediatric Reference Intervals, 7th Ed, [employer] Press, 2011. 25 GLUCOSE REFERENCE RANGE BASED ON FASTING SPECIMEN. 26 The upper reference limit for Creatinine is approximately 13% higher for people identified as -Bruneian. 27 WE RECEIVED YOUR HANDWRITTEN TEST ORDER FOR A CHEMISTRY PANEL CONTAINING 14 OR MORE ANALYTES. WE PERFORMED THE AMA DEFINED COMPREHENSIVE METABOLIC PANEL. IF THIS IS NOT WHAT YOU INTENDED TO ORDER, PLEASE CONTACT YOUR LOCAL DENTAL FLOSS PACKER IMMEDIATELY AT SO THAT WE CAN ADJUST OUR BILLING APPROPRIATELY. YOU MAY ALSO INQUIRE ABOUT ALTERNATIVE OR ADDITIONAL TESTING. 28 WE RECEIVED YOUR HANDWRITTEN TEST ORDER FOR A CHEMISTRY PANEL CONTAINING 14 OR MORE ANALYTES. WE PERFORMED THE AMA DEFINED COMPREHENSIVE METABOLIC PANEL. IF THIS IS NOT WHAT YOU INTENDED TO ORDER, PLEASE CONTACT YOUR LOCAL DENTAL FLOSS PACKER IMMEDIATELY AT SO THAT WE CAN ADJUST OUR BILLING APPROPRIATELY. YOU MAY ALSO INQUIRE ABOUT ALTERNATIVE OR ADDITIONAL TESTING. 29 LDL-C is now calculated using the Savage calculation, which is a validated novel method providing better accuracy than the Friedewald equation in the estimation of LDL-C. Zachary SS et al.JILL.2013;310(19):5417-5146 (http://Scheduling Employee Scheduling Software.Drillinginfo/faq/FFN642) Desirable range <100 mg/dL for patients with CHD or Diabetes and <70 mg/dL for Diabetic patients with known heart disease 30 For patients with diabetes plus 1 major ASCVD risk factor, treating to a non-HDL-C goal of <100 mg/dL (LDL-C of <70 mg/ dL) is considered a therapeutic option. 31 The total PSA value from this assay system is standardized against the WHO standard. The test result will be approximately 20% lower when compared to the equimolar-standardized total PSA ([facility]). Comparison of serial PSA results should be [...] Vit D, (D2,D3),LC/MS/MS is recommended: Order code 57598 (patients >2 yrs). 33 I11.9 E78.2 N40.1 M81.8 I48.0 E03.9 [...] assay methods cannot be used interchangeably. Method: Scour Prevention [place] Chemiluminescent immunoassay. 40 Vitamin D deficiency has been defined by the [place] of [employer] and an Endocrine Society practice guideline as a level of serum 25-OH vitamin D less than 20 ng/mL (1,2). The Endocrine Society went on to further define vitamin D insufficiency as a level between 21 and 29 ng/mL (2). 1. IOM ([place] of [employer]). 2010. Dietary reference intakes for calcium and D. [place]: The National Academies Press. 2. Shabbir MF, [place], Linus PYLE, et al. Evaluation, treatment, and prevention of vitamin D deficiency: an Endocrine Society clinical practice guideline. JCEM. 2010; 96):6282-30. Performed at: RN - [facility] [address] [id number] Linux Kernel Developer: Taryn Sánchez MD, Phone: [phone] Procedures Date Code Description Status 01/13/2018 08458 Non-Invcorrotid/Comp /Bilat Study Completed 01/03/2017 96910 Dxa Bone Density [employer] Vertebral Fracture Completed Assessment 01/03/2017 [id number] Bone Mineral Density Test Completed 04/11/2010 [id number] Colonoscopy Completed Encounters Type Date Location Provider Dx Diagnosis Office Visit 04/29/2018 10:45a Main Office Temi [...] Office Visit 12/11/2016 8:45a Main Office Temi Blackburn K21.9 Gastro- esophageal reflux MD disease without esophagitis I11.9 Hypertensive heart disease without heart failure I48.0 Paroxysmal atrial fibrillation M54.5 Low back pain E55.9 Vitamin D deficiency, unspecified Plan of Treatment 05/13/2018 - Annie Martinez Medication:Zantac 75 75 mg - tab 1 by mouth twice a day
--- OUTSIDE RECORDS SUMMARY | 2018-06-02 12:28 | XMS REPORT | Continuity of Care Document ---
:1945 External Reference #:[id number] Author Name Lorie Jimenez Care Team Providers Name Role Phone Temi Blackburn MD Care Team Information Facilities Maintenance Technician Unavailable Temi Blackburn MD Primary Care Physician Unavailable Payers Type Date Identification Numbers Payment Provider Subscriber Policy Number: [id number] Medicare Nic Angel PayID: [id number] [address] [place] [address] Policy Number: [id number] [facility] Nic Angel PayID: [id number] [address] [place] [address] Advance Directives Description No Information Available Problems [...] Bere Zinc 12/11 Active Tablets 50mg daily Cheo MD Bere Tumeric 12/11 Active qd El MD Bere Vitamin D 11/27 Active Capsules [id number] 12cap by mouth Temi (Ergocalciferol) s every week MD Bere Lotrel 11/27 Active Capsules 5-40mg 90cap tab 1 by El s mouth Ring, MD every day Metoprolol Active Tablets 50mg 1 [...] 500mg 7tabs 1 by mouth J15.7 Juan FRoemro /2017 every day MD Jessie - 06/28 Zithromax Z-Brennen 05/14 Hx Tablets 250mg 1Pak 1 by mouth every day MD Bere - 06/28 Metamucil Fiber 05/14 Hx Packet 51.7% 90uni 1 packet ts every at MD Bere - bedtime in 05/13 8 oz water Zostavax 12/11 Hx Suspension [id number]/ 1unit one Rec 0.65ML s injection MD [...] CPT Code Status Date Vaccine Lot # [id number] Given 12/17/2016 Zostavax Vital Signs Date Vital [...] Result H/L Range Note Continuous Oximetry 05/22/2018 [facility] Oximetry 95 % N 93-[address] [place] [address] [phone] Fio2 21 N 21-100 Heart Rate 94 BPM Patient Status AMBULATING Continuous Oximetry 05/22/2018 [facility] Oximetry 95 % N 93-[address] [place] [address] [phone] Fio2 21 N 21-100 Heart Rate 87 BPM Patient Status RESTING Patient Position SITTING UP IN BE <SEE NOTE> 2 CBS W/Automated 05/22/2018 [facility] White Blood 9.2 K/uL N 3.4-10.[address] [place] [address] [phone] Red Blood Count 3.92 M/uL Low 4.20-5.80 [...] 33.0-73.0 Lymph % 6.7 % Low 20.0-42.0 Bibb % 8.5 % N 0.0-10.0 Eo% 2.5 % N 0.0-6.6 Bas% 0.2 % N 0.0-1.1 Neut# 7.55 K/uL High 1.8-7.0 Lymph # 0.62 K/uL Low 1.0-4.0 Bibb # 0.78 K/uL N 0.0-0.8 Eos # 0.23 K/uL N 0.0-0.5 Baso # 0.02 K/uL N 0.0-0.1 Slide Review 05/22/2018 [facility] Slide Review DIFF ORDERED [address] [place] [address] [phone] Differential-WBC 05/22/2018 [facility] Total Cells 100 #CELLS Confirm [address] [place] [address] [phone] Band% 2 % N 0-8 Neutrophils% 89 % High 33-73 Lymph% 3 % Low 20-42 Monocyte% 4 % N 0-10 Eosinophil% 2 % N 0-5 Platelet Estimate NORMAL Toxic Granulation 0-1+ Comprehensive 05/22/2018 [facility] Glucose 124 mg/ dL High 74-106 Metabolic Panel [address] [place] [address] [phone] BUN 19 mg/dL High 7-18 Creatinine 1.0 [...] 46 U/L N 45-117 Laboratory test 05/22/2018 [facility] Magnesium 2.0 mg/dL N 1.8-2.[address] [place] [address] [phone] C-Reactive Protein,Quant 143.0 mg/L High <3.0 Lactic Acid 05/21/2018 [facility] Lactic Acid 3.0 mmol/L High 0.4-1.[address] [place] [address] [phone] Lab Reflex >2.0 for Sepsis? N Laboratory test 05/21/2018 [facility] Troponin-I < 0.015 [address] ng/[place] [address] [phone] Laboratory test 05/21/2018 [facility] Magnesium 1.7 mg/dL Low 1.8-2.[address] [place] [address] [phone] Troponin-I < 0.015 ng/mL 6 C-Reactive Protein,Quant 56.0 mg/L High <3.0 Comprehensive 05/21/2018 [facility] Glucose 152 mg/ dL High 74-106 Metabolic Panel [address] [place] [address] [phone] BUN 15 mg/dL N 7-18 Creatinine 1.1 [...] 54 U/L N 45-117 CBS W/Automated 05/21/2018 [facility] White Blood 14.2 K/uL High 3.4-10.[address] [place] [address] [phone] Red Blood Count 4.16 M/uL Low 4.20-5.80 [...] 33.0-73.0 Lymph % 3.3 % Low 20.0-42.0 Bibb % 7.6 % N 0.0-10.0 Eo% 0.0 % N 0.0-6.6 Bas% 0.1 % N 0.0-1.1 Neut# 12.68 K/uL High 1.8-7.0 Lymph # 0.47 K/uL Low 1.0-4.0 Bibb # 1.08 K/uL High 0.0-0.8 Eos # 0.00 K/uL N 0.0-0.5 Baso # 0.01 K/uL N 0.0-0.1 Lactic Acid 05/21/2018 [facility] Lactic Acid 2.5 mmol/L High 0.4-1.[address] [place] [address] [phone] Lab Reflex >2.0 for Sepsis? N Lactic Acid 05/21/2018 [facility] Lactic Acid 2.1 mmol/L High 0.4-1.[address] [place] [address] [phone] Lab Reflex >2.0 for Sepsis? N Lactic Acid 05/21/2018 [facility] Lactic Acid 1.7 mmol/L N 0.4-1.[address] [place] [address] [phone] Lab Reflex >2.0 for Sepsis? N Ast-GN67 05/20/2018 [facility] Nitrofurantoin [address] [place] [address] [phone] Trimethoprim/Sulfamethoxazole <=20 S Cefazolin <=4 R Ciprofloxacin <=0.25 S Piperacillin/Tazobactam <=4 S Ceftazidime <=1 S Ceftriaxone <=1 S Cefepime <=1 S Levofloxacin <=0.12 S Imipenem <=0.25 S Gentamicin <=1 S Tobramycin <=1 S Urine 05/20/2018 [facility] Urine ENTEROBACTER YAMILETH Abnormal [address] Culture <SEE NOTE> [place] [address] [phone] Quantity > 100,000 CFU/mL 11 Urinalysis With 05/20/2018 [facility] Urine Color YELLOW Yellow [address] [place] [address] [phone] Urine Clarity CLEAR Clear Urine Glucose - Dipstick NEGATIVE mg/dL Negative Urine Bilirubin - Dipstick NEGATIVE Negative Urine Ketone TRACE mg/dL High Negative Urine Specific [place] >=1.030 N 1.010-1.030 Urine Blood TRACE Negative [...] CAT <SEE NOTE> 13 Laboratory test 05/20/2018 [facility] D-Dimer, 0.34 ug/mL [address] [place] [address] [phone] Lactic Acid 05/20/2018 [facility] Lactic Acid 2.7 mmol/L High 0.4-[address] [place], [place] [address] [phone] Lab Reflex >2.0 for Sepsis? Y Blood Culture 05/20/2018 [facility] Blood Culture NO GROWTH: 15, [address] Aerobic FINAL <[place] [address] NOTE> [phone] Blood Culture Anaerobic NO GROWTH: FINAL <SEE NOTE> 17 Slide Review 05/20/2018 [facility] Slide Review (SEE NOTE) 18, [address] [place] [address] [phone] CBS 05/20/2018 [facility] White Blood 11.0 K/uL High 3.4-10 W/Automated [address] Count .5 [place] [address] [phone] Red Blood Count 4.73 M/uL N 4.20-5.80 [...] 33.0-73.0 Lymph % 11.0 % Low 20.0-42.0 Bibb % 10.8 % High 0.0-10.0 Eo% 0.5 % N 0.0-6.6 Bas% 0.2 % N 0.0-1.1 Neut# 8.55 K/uL High 1.8-7.0 Lymph # 1.21 K/uL N 1.0-4.0 Bibb # 1.19 K/uL High 0.0-0.8 Eos # 0.06 K/uL N 0.0-0.5 Baso # 0.02 K/uL N 0.0-0.1 Laboratory test 05/20/2018 [facility] Magnesium 1.7 mg/dL Low 1.8-2.[address] [place] [address] [phone] NT-proBNP 86.0 pg/mL <125 Troponin-I < 0.015 ng/mL 20 Comprehensive 05/20/2018 [facility] Glucose 113 mg/ dL High 74-106 Metabolic Panel [address] [place] [address] [phone] BUN 22 mg/dL High 7-18 Creatinine 1.1 [...] Phosphatase 66 U/L N 45-117 Laboratory 05/20/2018 [facility] Occult NEGATIVE Negative 22 test finding [address] Blood,Stool [place], [place] [address] [phone] Blood Culture 05/20/2018 [facility] Blood Culture NO GROWTH: 23, [address] Aerobic FINAL <SEE [address] [place] [address] NOTE> [phone] Blood Culture Anaerobic NO GROWTH: FINAL <SEE NOTE> 25 Aot Request 05/20/2018 [facility] Aot Request Test(s ) added 26, [address] [place] [address] [phone] Tests to be added: crp magnesium Aot Request 05/20/2018 [facility] Aot Request Test(s ) added [address] [place] [address] [phone] Tests to be added: bnp Laboratory test 05/20/2018 [facility] C-Reactive 7.2 mg/L High <3.[address] Protein,Quant [place], [place] [address] [phone] Laboratory test 05/20/2018 [facility] Lactic Acid 4.9 High 0.4-1.9 [address] mmol/[place] [address] [phone] Laboratory test 04/29/2018 [facility] TSH 2.35 0.40-4.[address] mIU/L 0 [place] [address] [phone] T4,Free 1.0 ng/dL 0.8-1.8 PSA,Total 0.5 NG/ML < Or=4.0 31 Vitamin D,25-Hydroxy,Total,Immunoassay 36 NG/ML 30-100 32 CBS W/Automated Diff 04/29/2018 [facility] WBC 8.1 thous/L 3.8-10.[address] [place] [address] [phone] RBC 4.79 mill/L 4.20-5.80 Hemoglobin 14.8 g/dL 13.2-17.1 Hematocrit 45.3 % 38.5-50.0 MCV 94.7 FL 80.0-100.0 MCH 30.9 pg 27.0-33.0 MCHC 32.6 g/dL 32.0-36.0 RDW 13.1 % 11.0-15.0 Platelet Count 168 thous/L 140-400 MPV 8.2 FL 7.5-12.5 Neutrophils,Absolute 6010 cells/L [phone] Bands,Absolute PENDING Metamyelocytes,Absolute PENDING Myelocytes,Absolute PENDING Promyelocytes,Absolute [...] [facility] Cholesterol 124 mg/dL <[address] [place] [address] [phone] HDL Cholesterol 40 mg/dL Low >40 Cholesterol/HDL Ratio 3.1 CALC <5.0 LDL Chol,Calculated 67 mg/dL 0-100 34 Triglycerides 86 mg/dL <150 Non-HDL Cholesterol 84 mg/dL <130 35 Laboratory test 04/29/2018 [facility] Creatine 75 U/L 44-[address] Kinase,Total [place], [place] [id number] [phone] Comp Metabolic 04/29/2018 [facility] Sodium 136 135-[address] mmol/L [place], [place] [address] [phone] Potassium 4.1 mmol/L 3.5-5.3 Chloride 102 mmol/L [...] 1.9-3.7 A/G Ratio 1.6 1.0-2.5 Egfr Non-Afr. Citizen [place] 79 ML/MIN/1.73M2 > Or=60 Egfr 91 ML/MIN/1.73M2 > Or=60 CBC W/ Diff & 01/07/2018 [facility] White Blood 5.9 K /uL N 3.4-10.5 [address] [place] [address] [phone] Red Blood Count 4.71 M/uL N 4.20-5.80 [...] 33.0-73.0 Lymph % 15.2 % Low 20.0-42.0 Bibb % 15.0 % High 0.0-10.0 Eo% 3.6 % N 0.0-6.6 Bas% 0.2 % N 0.0-1.1 Neut# 3.87 K/uL N 1.8-7.0 Lymph # 0.89 K/uL Low 1.0-4.0 Bibb # 0.88 K/uL High 0.0-0.8 Eos # 0.21 K/uL N 0.0-0.5 Baso # 0.01 K/uL N 0.0-0.1 Comprehensive 01/07/2018 [facility] Glucose 117 mg/ dL High 74-106 Metabolic Panel [address] [place], [place] [address] [phone] BUN 21 mg/dL High 7-18 Creatinine 1.0 [...] 59 U/L N 45-117 LDL Cholesterol 01/07/2018 [facility] Cholesterol 125 mg/dL <200 [address] [place] [address] [phone] Triglycerides 132 mg/dL <150 42 HDL Cholesterol 43 mg/dL >40 43 LDL-Cholesterol 56 mg/dL < 100 44 Laboratory test finding 01/07/2018 [facility] CK 159 U/L N 39-[address] [place] [address] [phone] Prostate Specific Antigen 3.78 ng/mL < 4.0 45 Thyroid Stim Hormone 1.60 uIU/mL N 0.30-4.20 Free T4 1.04 ng/dL N 0.76-1.46 Laboratory test 01/07/2018 [facility] Vitamin 47.8 30.0-100.0 [address] D,25-Hydroxy ng/[place] [address] [phone] CBC W/ Diff & 08/26/2017 [facility] WBC 6.2 3.8-10.[address] thous/[place] [address] [phone] RBC 4.84 mill/L 4.20-5.80 Hemoglobin 14.9 g/dL 13.2-17.1 Hematocrit 45.5 % 38.5-50.0 MCV 94.1 FL 80.0-100.0 MCH 30.7 pg 27.0-33.0 MCHC 32.6 g/dL 32.0-36.0 RDW 13.6 % 11.0-15.0 Platelet Count 204 thous/L 140-400 Platelet Sufficiency PENDING MPV 8.1 FL 7.5-12.5 Neutrophils,Absolute 3890 cells/L [phone] Bands,Absolute PENDING Metamyelocytes,Absolute PENDING Myelocytes,Absolute PENDING Promyelocytes,Absolute [...] [facility] Sodium 137 mmol/L 135-[address] [place] [address] [phone] Potassium 4.5 mmol/L 3.5-5.3 Chloride 104 mmol/L [...] 1.9-3.7 A/G Ratio 1.9 1.0-2.5 Egfr Non-Afr. [place] 65 ML/MIN/1.73M2 > Or=60 Egfr 76 ML/MIN/1.73M2 > Or=60 Laboratory test 08/26/2017 [facility] Creatine 76 U/L 44-[address] Kinase,[place] [address] [phone] Hepatic Function 08/26/2017 [facility] Alkaline 54 U/L 40-[address] [place] [address] [phone] Ast 27 U/L 10-35 Alt 37 U/L 9-46 Bilirubin,Total 0.7 mg/dL 0.2-1.2 Bilirubin,Direct 0.2 mg/dL < Or=0.2 Protein,Total 6.9 g/dL 6.1-8.1 Albumin 4.5 g/dL 3.6-5.1 Globulin,Calculated 2.4 g/dL 1.9-3.7 A/G Ratio 1.9 1.0-2.5 Lipid Panel 08/26/2017 [facility] Cholesterol 127 mg/dL <[address] [place] [address] [phone] HDL Cholesterol 52 mg/dL >40 Cholesterol/HDL Ratio 2.4 CALC <5.0 LDL Chol,Calculated 61 mg/dL 0-100 51 Triglycerides 61 mg/dL <150 Non-HDL Cholesterol 75 mg/dL <130 52 Comp Metabolic Panel 04/29/2017 [facility] Sodium 139 mmol/L 135-[address] [place] [address] [phone] Potassium 4.7 mmol/L 3.5-5.3 Chloride 105 mmol/L [...] A/G Ratio 2.1 1.0-2.5 55 Egfr Non-Afr. Citizen [place] 85 ML/MIN/1.73M2 > Or=60 Egfr 98 ML/MIN/1.73M2 > Or=60 Hepatic Function 04/29/2017 [facility] Alkaline Phosphatase 56 U/L 40- [address] [place] [address] [phone] Ast 16 U/L 10-35 Alt 20 U/L 9-46 Bilirubin,Total 0.7 mg/dL 0.2-1.2 Bilirubin,Direct 0.2 mg/dL < Or=0.2 Protein,Total 6.6 g/dL 6.1-8.1 Albumin 4.4 g/dL 3.6-5.1 Globulin,Calculated 2.2 g/dL 1.9-3.7 A/G Ratio 2.1 1.0-2.5 56 Lipid Panel 04/29/2017 [facility] Cholesterol 132 mg/dL <[address] [place] [address] [phone] HDL Cholesterol 37 mg/dL Low >40 Cholesterol/HDL Ratio 3.6 CALC <5.0 LDL Chol,Calculated 76 mg/dL 0-100 57 Triglycerides 100 mg/dL <150 Non-HDL Cholesterol 95 mg/dL <130 58 Laboratory test finding 04/29/2017 [facility] TSH 1.20 mIU/L 0.40-4.[address] [place] [address] [phone] T4,Free 1.1 ng/dL 0.8-1.8 PSA,Total 0.9 NG/ML < Or=4.0 59 Vitamin D,25-Hydroxy,Total,Immunoassay 47 NG/ML 30-100 60 CBC W/ Diff & PLT 04/29/2017 [facility] WBC 6.4 thous/L 3.8-10.[address] [place] [address] [phone] RBC 4.83 mill/L 4.20-5.80 Hemoglobin 15.1 g/dL 13.2-17.1 Hematocrit 44.5 % 38.5-50.0 MCV 92.1 FL 80.0-100.0 MCH 31.2 pg 27.0-33.0 MCHC 33.9 g/dL 32.0-36.0 RDW 12.9 % 11.0-15.0 Platelet Count 207 thous/L 140-400 Platelet Sufficiency PENDING MPV 8.3 FL 7.5-12.5 Neutrophils,Absolute 4370 cells/L [phone] Bands,Absolute PENDING Metamyelocytes,Absolute PENDING Myelocytes,Absolute PENDING Promyelocytes,Absolute [...] Stippling PENDING Comment PENDING General Health 01/09/2017 [facility] Thyroid Stim 0.94 uIU/mL N 0.30-4.[address] [place] [address] [phone] Free T4 0.87 ng/dL N 0.76-1.46 CMP W/O Egfr 01/09/2017 [facility] Glucose 107 mg/dL High 74-[address] [place] [address] [phone] BUN 25 mg/dL High 7-18 Creatinine 0.9 [...] N 45-117 CBC W/ Diff & 01/09/2017 [facility] White Blood 8.4 K /uL N 3.4-10.[address] Count [place], [place] [address] [phone] Red Blood Count 4.54 M/uL N 4.20-5.80 [...] 33.0-73.0 Lymph % 12.3 % Low 20.0-42.0 Bibb % 11.2 % High 0.0-10.0 Eo% 3.2 % N 0.0-6.6 Bas% 0.2 % N 0.0-1.1 Neut# 6.11 K/uL N 1.8-7.0 Lymph # 1.03 K/uL N 1.0-4.0 Bibb # 0.94 K/uL High 0.0-0.8 Eos # 0.27 K/uL N 0.0-0.5 Baso # 0.02 K/uL N 0.0-0.1 Lipid Panel 01/09/2017 [facility] Cholesterol 181 mg/ dL <[address] [place] [address] [phone] Triglycerides 159 mg/dL High <150 65 HDL Cholesterol 42 mg/dL >40 66 LDL-Cholesterol 107 mg/dL < 100 67 Laboratory test 01/09/2017 [facility] Prostate 1.56 ng/mL < 4.0 [address] [place] [address] Antigen [phone] Vitamin D,25-Hydroxy 45.7 ng/mL 30.0-100.0 69 Bilirubin,Direct [...] DVT, or Pulmonary embolism as clinically indicated. ([facility] has established a 97.89% negative predictive value [...] compared to the equimolar-standardized total PSA (Radha Turlock). Comparison of serial PSA results should be [...] Vit D, (D2,D3),LC/MS/MS is recommended: Order code 00722 (patients >2 yrs). 33 Relative blood cell [...] 34 LDL-C is now calculated using the Savage calculation, which is a validated novel method providing better accuracy than the Friedewald equation in the estimation of LDL-C. Zachary PATEL et al.JILL.2013;310(19):2312-2627 Desirable range <100 mg/dL for primary prevention; <70 mg/dL for patients with CHD or diabetic patients with >or=2 CHD risk factors. For additional information, please refer to http://education.Casabi/faq/SRL168(This link is being provided for informational/educational purposes [...] approximately 13% higher for people identified as -Citizen Of [place]. 39 I11.9,E55.9,E78.2 AIC IMPAIRED FASTING 40 Note: [...] methods cannot be used interchangeably. Method: [employer] [place] Chemiluminescent immunoassay. 46 Vitamin D deficiency has been defined by the [place] of Medicine and an Endocrine Society practice guideline as a level of serum 25-OH vitamin D less than 20 ng/mL (1,2). The Endocrine Society went on to further define vitamin D insufficiency as a level between 21 and 29 ng/mL (2). 1. IOM ([place] of Medicine). 2010. Dietary reference intakes for calcium and D. [place]: The National Academies Press. 2. Shabbir MF, Opal LESLIE, Linus PYLE, et al. Evaluation, treatment, and prevention of vitamin D deficiency: an Endocrine Society clinical practice guideline. JCEM. 2010; 96(7):1911-30. Performed at: RN - [facility] [address] [id number] Return Agent: Taryn Sánchez MD, Phone: [phone] FASTING 48 Relative blood cell counts [...] approximately 13% higher for people identified as -Citizen Of [place]. 51 LDL-C is now calculated using the Zachary-Marci calculation, which is a validated novel method providing better accuracy than the Friedewald equation in the estimation of LDL-C. Zachary PATEL et al.JILL.2013;310(19):2809-0537 (http://education.[employer].WomStreet/faq/RIM772) Desirable range <100 mg/dL for patients with [...] approximately 13% higher for people identified as -Citizen Of [place]. 55 WE RECEIVED YOUR HANDWRITTEN TEST ORDER FOR A CHEMISTRY PANEL CONTAINING 14 OR MORE ANALYTES. WE PERFORMED THE AMA DEFINED COMPREHENSIVE METABOLIC PANEL. IF THIS IS NOT WHAT YOU INTENDED TO ORDER, PLEASE CONTACT YOUR LOCAL SOLAR SALES CONSULTANT IMMEDIATELY AT SO THAT WE CAN ADJUST OUR BILLING APPROPRIATELY. YOU MAY ALSO INQUIRE ABOUT ALTERNATIVE OR ADDITIONAL TESTING. 56 WE RECEIVED YOUR HANDWRITTEN TEST ORDER FOR A CHEMISTRY PANEL CONTAINING 14 OR MORE ANALYTES. WE PERFORMED THE AMA DEFINED COMPREHENSIVE METABOLIC PANEL. IF THIS IS NOT WHAT YOU INTENDED TO ORDER, PLEASE CONTACT YOUR LOCAL SOLAR SALES CONSULTANT IMMEDIATELY AT SO THAT WE CAN ADJUST OUR BILLING APPROPRIATELY. YOU MAY ALSO INQUIRE ABOUT ALTERNATIVE OR ADDITIONAL TESTING. 57 LDL-C is now calculated using the Zachary-Covarrubias calculation, which is a validated novel method providing better accuracy than the Friedewald equation in the estimation of LDL-C. Zachary PATEL et al.JILL.2013;310(19):3469-9731 (http://education.ScaleDB.WomStreet/faq/JPG706) Desirable range <100 mg/dL for patients with [...] Vit D, (D2,D3),LC/MS/MS is recommended: Order code 53895 (patients >2 yrs). 61 Relative blood cell [...] Reference Intervals, 7th Ed, AACC Press, 2011. 62 I11.9 E78.2 N40.1 M81.8 [...] assay methods cannot be used interchangeably. Method: [employer] [place] Chemiluminescent immunoassay. 69 Vitamin D deficiency has been defined by the [place] of Medicine and an Endocrine Society practice guideline as a level of serum 25-OH vitamin D less than 20 ng/mL (1,2). The Endocrine Society went on to further define vitamin D insufficiency as a level between 21 and 29 ng/mL (2). 1. IOM ([place] of Medicine). 2010. Dietary reference intakes for calcium and D. [place]: The National Academies Press. 2. Shabbir MF, Opal [place], Linus PYLE, et al. Evaluation, treatment, and prevention of vitamin D deficiency: an Endocrine Society clinical practice guideline. JCEM. 2010; 96(7):1911-30. Performed at: RN - [facility] [address] [id number] Return Agent: Taryn Sánchez MD, Phone: [phone] Procedures Date Code Description Status 01/13/2018 18217 Non-Invcorrotid/Comp /Bilat Study Completed 01/03/2017 40462 Dxa Bone Density [employer] Vertebral Fracture Completed Assessment 01/03/2017 [id number] Bone Mineral Density Test Completed 04/11/2010 [id number] Colonoscopy Completed Encounters Type Date Location Provider [...] Appointment(s):08/06/2018 8:30 am - Nurse at Main [facility]1708/18/2018 3: 30 pm - Temi Blackburn MD at Main Ijcpio7005/26/2018 - Annie Martinez Medication: Flomax 0.4 mg - 1 by mouth every day
[2018-06-02 13:16] VITALS: BP 143/81
--- NOTE | 2018-06-02 14:39 | UC ---
Back Pain HPI - HPI Summary HPI Summary: C/O left low back pain, radiating down the leg. Worse in the last 2 days with pain radiating down into the foot. Being seen at [facility] for Spinal stenosis. No weakness. Denies numbness. - History of Current Complaint Chief Complaint: UCRespiratory Stated Complaint: LOW BACK,LEFT LEG PAIN Time Seen by Provider: 06/02/18 14:34 Hx Obtained From: Patient Onset/Duration: Sudden Onset, Lasting Days, Worse Since - last 2-3 days Timing: Constant Severity Initially: Moderate Severity Currently: Severe Pain Intensity: 8 Back Pain: Is Discrete @ - Left low back, Radiates To - down the leg into the foot. Character: Sharp, Burning Aggravating Factor(s): Walking - and standing Associated Signs And Symptoms: Positive: Pain with Weight Bearing. Negative: Fever, Weakness, Numbness, Bladder Incontinence, Bowel Incontinence Related History: Previous Back Injury - spinal stenosis - Risk Factors Cauda Equina Risk Factors: Negative Epidural Abscess Risk Factors: Negative - Allergies/Home Medications Allergies/Adverse Reactions: Allergies Allergy/AdvReac Type Severity Reaction Status Date / Time No Known Allergies Allergy Verified 06/02/18 13:12 Home Medications: Home Medications Acetaminophen TAB* [Tylenol TAB*] 650 mg PO Q4H PRN 06/02/18 [History Confirmed 06/02/18] Amlodipine Besylate/Benazepril [Amlodipine Besylate/Benaz 5-40 mg-] 1 cap PO DAILY 06/02/18 [History Confirmed 06/02/18] Apixaban* [Eliquis*] 5 mg PO BID 06/02/18 [History Confirmed 06/02/18] Atorvastatin* [Lipitor 20 MG*] 20 mg PO DAILY 06/02/18 [History Confirmed ] Ergocalciferol (Vitamin D2) [Vitamin D2] 50,000 unit PO WEEKLY 06/02/18 [ History Confirmed 06/02/18] Hydrochlorothiazide TAB* [Hydrodiuril TAB*] 12.5 mg PO DAILY 06/02/18 [History Confirmed 06/02/18] Lactobacillus Acidophilus [Acidophilus] 100 mg PO DAILY 06/02/18 [History Confirmed 06/02/18] Medical Canabis Gels 1 tab PO BID 06/02/18 [History Confirmed 06/02/18] Metoprolol Tartrate TAB* [Lopressor TAB*] 50 mg PO BID 06/02/18 [History Confirmed 06/02/18] Zinc 50 mg PO DAILY 06/02/18 [History Confirmed 06/02/18] raNITIdine HCl [Zantac 75] 75 mg PO DAILY 06/02/18 [History Confirmed 06/02/18] PMH/Surg Hx/FS Hx/Imm Hx Endocrine History: Dyslipidemia Cardiovascular History: Hypertension, Atrial Fibrillation - Surgical History Surgical History: None - Family History Known Family History: Positive: Cardiac Disease, Hypertension - Social History Occupation: Retired Lives: With Family Alcohol Use: Daily Alcohol Amount: glass wine Substance Use Type: Prescribed Substance Use Comment - Amount & Last Used: medical marijuana Smoking Status (MU): Never Smoked Tobacco Review of Systems All Other Systems Reviewed And Are Negative: Yes Musculoskeletal: Positive: Arthralgia - low back. Is Patient Immunocompromised?: No Physical Exam Triage Information Reviewed: Yes Appearance: Well-Appearing, Pain Distress - Mild, Obese Vital Signs: Initial Vital Signs Temp 98.3 F 06/02/18 13:10 Pulse 84 06/02/18 13:10 Resp 15 06/02/18 13:10 BP 143/81 06/02/18 13:10 Pulse Ox 97 06/02/18 13:10 Vital Signs Reviewed: Yes Eyes: Positive: Conjunctiva Clear Neck exam: Normal Respiratory Exam: Normal Cardiovascular Exam: Normal Musculoskeletal Exam: Other - Negative SLR Musculoskeletal: Positive: ROM Limited @ - Lumbar extension, Edema @ - 2+ pretibial bilaterally Neurological Exam: Normal - DTR and sensation normal bilateral LE. Psychological Exam: Normal Skin Exam: Normal Back Pain Course/Dx - Differential Dx/Diagnosis Differential Diagnosis/HQI/PQRI: Cauda Equina Syndrome, Herniated Disc, Strain Provider Diagnosis: Lumbar radiculopathy, acute, Essential (primary) hypertension Discharge - Sign-Out/Discharge Documenting (check all that apply): Patient Departure All imaging exams completed and their final reports reviewed: No Studies - Discharge Plan Condition: Stable Disposition: HOME Prescriptions: Gabapentin CAP(*) [Neurontin 300 CAP(*)] 300 mg PO TID #90 cap predniSONE [Prednisone 20 MG TAB] 20 mg PO DAILY #18 tablet Patient Education Materials: Lumbar Radiculopathy (ED), Prednisone (By mouth), Gabapentin (By mouth) Referrals: Temi Blackburn MD [Primary Care Provider] - Additional Instructions: GABAPENTIN: Gabapentin is an anti-seizure medication that is more often used for nerve pain. It helps to stabilize the nerve to stop the pain. Its primary side effect is sedation which will improve over time. Most people will start with only one capsule 1 to 2 hours before bed, but if your pain is more severe you may want to start with one capsule twice a day. If the pain is still an issue after another 1-2days the dose may be increased to a maximum of 1 capsule 3 times a day. Decrease the dose by one capsule a day if there is excessive sedation or it is not working. You can also decrease it to discontinue it if the pain is resolving. Please follow up with [facility] in the next week. - Billing Disposition and Condition Condition: STABLE Disposition: Home
== END 2018-06-02 15:02 | disposition home or self-care (01) ==
LOC: UCCORT 12:16
DX: M54.16 Radiculopathy, lumbar region (principal); I10 Essential (primary) hypertension; E78.5 Hyperlipidemia, unspecified; I48.91 Unspecified atrial fibrillation; Z79.01 Long term (current) use of anticoagulants
CPT/HCPCS: 99212; G0463